=== PATIENT | male | born 1950 ===

== ENCOUNTER → 2024-05-13 11:45 | Outpatient (REF) | payer OTHER, SELFPAY | LOC: RAD 11:45 | PROVIDERS: ATTENDING PHYSICIAN Internal Medicine | DX: I25.119 Atherosclerotic heart disease of native coronary artery with unspecified angina pectoris (principal) | CPT/HCPCS: 71046 ==

== ENCOUNTER 2024-06-29 21:54 | Inpatient (IN) | payer OTHER, SELFPAY ==
[2024-06-29 17:14] VITALS: BMI 28.3
[2024-06-29 17:46] LABS: % Basophils 0.2 % (0-2); % Eosinophils 0.2 % (0-6); % Immature Granulocytes 0.4 % (0-0.5); % Lymphocytes 11.4 % (20.5-51.1); % Monocytes 4.9 % (1.7-9.3); % Neutrophils 82.9 % (42.2-75.2); Absolute Immature Granulocytes 0.1 10^3/uL (0-0.05); Absolute Lymphocytes 1.3 10^3/uL (1.2-3.4); Absolute Monocytes 0.6 10^3/uL (0.1-0.6); Absolute Neutrophils 9.6 10^3/uL (1.4-6.5); Hematocrit 40.3 % (39.0-52.0); Hemoglobin 13.2 g/dL (13.0-18.0); Mean Corp Hgb Conc. 32.8 g/dL (33.0-37.0); Mean Corpuscular Hgb 31.2 pg (27.0-31.0); Mean Corpuscular Volume 95.3 fL (80.0-94.0); Mean Platelet Volume 9.7 fL (7.4-10.4); Nucleated Red Blood Cells % 0 % (-); Platelet Count 166 10^3/uL (130-400); Red Blood Cell Count 4.23 10^6/uL (4.70-6.10); Red Cell Dist. Width 16.9 % (11.5-14.5); White Blood Cell Count 11.6 10^3/uL (4.8-10.8)
[2024-06-29 18:02] LABS: ALT (SGPT) 147 U/L (0-50); AST (SGOT) 234 U/L (17-59); Albumin 4.5 g/dl (3.5-5.0); Alkaline Phosphatase 179 U/L (38-126); Blood Urea Nitrogen 27 mg/dl (9-20); Calcium 9.7 mg/dl (8.4-10.2); Carbon Dioxide 24 mmol/L (22-30); Chloride 108 mmol/L (98-107); Estimated Creatinine Clearance 46 ml/min; Glucose 193 mg/dl (70-99); Potassium 4.9 mmol/L (3.5-5.1); Sodium 142 mmol/L (135-145); Total Bilirubin 3.1 mg/dl (0.2-1.3); Total Protein 7.1 g/dl (6.3-8.2); eGFR > 60.00
--- NOTE | 2024-06-29 18:05 | ED.GENMED ---
History of Present Illness
General
Chief Complaint: Abdominal Pain
Source: patient
Exam Limitations: none
Time Seen by Provider: 06/29/24 17:53
History of Present Illness
History of Present Illness:
See MDM
Past History
Past History
ED Past Medical History: Arrthythmia, CAD, IDDM and Other (Crohns)
Social History
Tobacco: Non-smoker
Alcohol: None
Phy Exam
Physical Exam
Physical Exam:
See MDM
Course
Orders/Labs/Results
Orders:
Orders
06/29/24 17:13
EKG [Electrocardiogram (*1)] Urgent
Reason for Study: Abdominal Pain
EKG- Treatment ONCE
06/29/24 17:36
Complete Blood Count/With Diff Urgent
Comprehensive Metabolic Panel Urgent
Lipase Urgent
Troponin I Urgent
06/29/24 18:05
0.9% Sodium Chloride 1000 ml [Nss] 1,000 ml IV BOLUS
Morphine Sulfate 4 mg IV NOW STA
Ondansetron Injectable [Zofran] 4 mg IV NOW STA
US Abdomen Complete/Upper Urgent
Comment:
Reason For Exam: RUQ pain
Abnormal Lab Results
06/29/24
17:36
WBC 11.6 H 10^3/uL
(4.8-10.8)
RBC 4.23 L 10^6/uL
(4.70-6.10)
MCV 95.3 H fL
(80.0-94.0)
MCH 31.2 H pg
(27.0-31.0)
MCHC 32.8 L g/dL
(33.0-37.0)
RDW 16.9 H %
(11.5-14.5)
Abs Immat Gran (auto) 0.1 H 10^3/uL
(0-0.05)
Absolute Neuts (auto) 9.6 H 10^3/uL
(1.4-6.5)
Neutrophils % 82.9 H %
(42.2-75.2)
Lymphocytes % 11.4 L %
(20.5-51.1)
Chloride 108 H mmol/L
(98-107)
BUN 27 H mg/dl
(9-20)
Glucose 193 H mg/dl
(70-99)
Total Bilirubin 3.1 H mg/dl
(0.2-1.3)
AST 234 H U/L
(17-59)
ALT 147 H U/L
(0-50)
Alkaline Phosphatase 179 H U/L
(38-126)
Lipase > 4000 H* U/L
(23-300)
06/29/24 17:36
06/29/24 17:36
Vital Signs
Initial and Last Documented VS:
Initial Vital Signs
Temp Pulse Resp Pulse Ox
98.2 F 70 18 99
06/29/24 17:14 06/29/24 17:14 06/29/24 17:14 06/29/24 17:14
Last Documented Vital Signs
Temp Pulse Resp Pulse Ox
98.2 F 70 16 99
06/29/24 17:14 06/29/24 17:14 06/29/24 18:00 06/29/24 17:14
MDM/Problems Addressed
Differential Diagnosis Includes:
HPI and MDM Narrative:
73-year-old male presenting with right upper quadrant pain for the past several hours. Patient states he was out with his when he noted the symptoms. There is no pain in soon after eating. Patient believes this could be his gallbladder. He
has been told several times in the past that he has sludge and multiple stones in his gallbladder. On exam, patient has point tenderness in the right upper quadrant and is uncomfortable. Will obtain LFTs and right upper quadrant ultrasound and
provide pain control
Physical exam
General: Mildly uncomfortable
HEENT: protecting airway
Neck: appears supple
CV: No evidence of cyanosis
Resp: No accessory muscle use
Abd: Non-distended. Point tenderness to right upper quadrant
Extremities: No deformities
Neuro: alert
Psych: Normal affect
Skin: Intact
Problems Addressed including Acute and Chronic Conditions affecting care:
1. Abdominal pain
Acuity: acute
Prognosis: stable
Details: Given location of pain and prior history of gallstones, will obtain ultrasound
Updates
Lipase elevated which raises concern for gallstone pancreatitis
On reassessment after morphine, all symptoms resolved. Ultrasound confirms gallstones with no obvious ductal dilation. Case discussed with general surgery who suggested admit for GI evaluation for MRCP versus ERCP
Differential Diagnosis (but not limited to): Symptomatic cholelithiasis, acute calculus cholecystitis
Testing considered: Abdominal CT
Drug therapy (if applicable): OTC meds, please see d/c instruction regarding Rx drugs
Amount and/or Complexity of Data Reviewed
Clinical info obtained from: Patient
External data reviewed: N/A
Labs I independently reviewed (but not limited to): Mild leukocytosis, elevated LFTs, elevated lipase
Radiology: Ultrasound report
Pulse Ox: not hypoxic
EKG independently reviewed: N/A
Cane Stripper: N/A
Critical Care: N/A
Risk of Complication:
Social Determinants of health: Good social support
Discussed with other providers: General Surgeon, Hospital
Escalation of Care includes Admit/Obs: Given concern for gallstone pancreatitis, will admit for further workup
Occasional wrong word or 'sound a like' substitutions may have occurred due to the inherent limitations of voice recognition software. Read the chart carefully and recognize, using context, where substitutions have occurred.
*Critical Care Note
Total Time (30-74mins, 75-104mins- exclusive of procedures): Not Applicable
ED Attending Note
-
Portions of this chart may have been created with voice recognition software.� Occasional wrong word or��sound alike� substitutions may have occurred due to the inherent limitations of voice recognition software.
Discharge Plan
Departure
Patient Disposition: Admit
Date of Disposition: 06/29/24
Time of Disposition: 20:48
Presentation/result/management discussed w/ accepting MD/DO: Hospitalist
Discharge Problem:
Gallstone pancreatitis
Prescriptions:
No Action
atorvastatin [Lipitor] 80 mg Tablet
80 mg PO QPM
carvedilol [Coreg] 25 mg Tablet
25 mg PO BID
Theragen Tablet
1 tab PO DAILY
ascorbic acid (vitamin C) [Vitamin C] 500 mg Tablet
500 mg PO BID
pantoprazole [Protonix] 40 mg Tablet,Delayed Release (Dr/Ec)
40 mg PO DAILY
eplerenone 25 mg Tablet
25 mg PO DAILY
Fish Oil Capsule
1,000 mg PO QPM
cholecalciferol (vitamin D3) [Vitamin D3] 25 mcg (1,000 unit) Tablet
50 mcg PO DAILY
insulin glargine 100 unit/mL (3 mL) Insulin Pen
28 unit SC HS
Eliquis 5 mg Tablet
5 mg PO BID
potassium chloride 20 mEq Tablet Extended Release
20 meq PO QPM
Jardiance 25 mg Tablet
12.5 mg PO DAILY
sacubitril-valsartan [Entresto] 97-103 mg Tablet
1 tab PO BID
Referrals:
Kezia Hagen DO [Family Provider] -
Interventions
Interventions:
*Risk Screen - Suicide Last Done: 06/29/24 17:14
*General Assessment Last Done: 06/29/24 17:14
*Neglect/Abuse Screening Last Done: 06/29/24 17:52
*ED COVID-19 Vaccine History Last Done: 06/29/24 17:14
NQ-Bukdqi-Ecedhbpakp Assessment Last Done: 06/29/24 17:52
Discharge Date and Time
Print Language: CHINESE
[2024-06-29 18:10] LABS: Troponin I < 0.012 ng/ml
[2024-06-29 18:27] LABS: Lipase > 4000 U/L (23-300)
[2024-06-29] MEDS: NSS 1000 IV (18:27)
[2024-06-29] MEDS: ZOFRAN 4 MG IV (18:27)
[2024-06-29] MEDS: MORPHINE SULFATE 4 MG IV (18:27)
[2024-06-29 21:08] VITALS: BP 153/68
--- NOTE | 2024-06-29 21:09 | EDRN ---
Hospitalist at bedside working on admission, call briggs in reach
--- NOTE | 2024-06-29 21:14 | HPS.HSE ---
Family Physician
-
Family Physician: Kezia Hagen,
Chief Complaint
-
Abdominal pain
History of Present Illness
This is 73-year-old with past medical history significant for insulin-dependent diabetes, coronary artery disease status post CABG and approximately 16 stents, ischemic cardiomyopathy, status post PPM AICD, atrial fibrillation currently on
anticoagulation, GERD who presents to the emergency department with episode of epigastric pain.
Patient reports he had a similar episode about 3 weeks ago. He took Gas-X and which resolution of pain. He reported that around 2 PM this afternoon he started having epigastric pain that appears to be radiating to the right upper quadrant. It is
associated with nausea but denies any vomiting. He denies any radiation to the chest shoulders arms or legs. He denies any associated dyspnea on exertion or shortness of breath. Patient denies any palpitations. He denies feeling dizzy or
lightheaded.
He initially tolerated the pain for a few hours after arriving home. He took some antacids without any improvement in pain. Pain became even more severe so he decided to come to the emergency department. He denies having any fevers or chills.
Patient reports recent urological issues requiring cystoscopy which was unremarkable. He had a CT recently which did showed a left kidney lesion of about 2 cm and is pending MRI of the abdomen. He is also pending an MRI of the cervical spine.
He denies any recent episodes of exertional angina with last episode of angina several months ago requiring nitroglycerin.
Here in the emergency department he was afebrile, normotensive, satting 99% on room air. Pulse was 70. ECG shows a a paced rhythm at 71. Troponin was negative. CBC was unremarkable with a white count of 11.6. Electrolytes BUN/creatinine were
all within the normal range. Glucose 193. He did have elevations in total bilirubin to 3.1, elevations of AST to 234 ALT to 1.7 and alk phos to 179. Lipase was elevated at 4000.
Ultrasound of the abdomen shows cholelithiasis with multiple stones, mild gallbladder thickening, no evidence of biliary ductal dilation.
Medical History
Past Medical History
Past Medical History: Reports Arrhythmia (History of atrial fibrillation status post PPM, no recent episodes on anticoagulation), CHF (Nonischemic cardiomyopathy, status post PPM AICD), GERD, HTN and Hypercholesterolemia
Past Surgical History: Reports Cardiac (CABG)
Social History
Tobacco: Non-smoker
Alcohol: Occasional
Drug: None
Personal:
Living: With Family
Employment: Retired
Family History
Family History: Not pertinent
Allergies / Home Medications
Allergies reflects when Allergies were last updated in [facility].
Home Medications with original date entered in [facility]
Allergy/Medication List:
Allergies
Allergy/AdvReac Type Severity Reaction Status Date / Time
No Known Allergies Allergy Unverified 06/29/24 18:20
Home Medications
apixaban 5 mg tablet (Eliquis) 5 mg PO BID 06/29/24
ascorbic acid (vitamin C) 500 mg tablet (Vitamin C) 500 mg PO BID 06/29/24
atorvastatin 80 mg tablet (Lipitor) 80 mg PO QPM 06/29/24
carvedilol 25 mg tablet (Coreg) 25 mg PO BID 06/29/24
cholecalciferol (vitamin D3) 25 mcg (1,000 unit) tablet (Vitamin D3) 50 mcg PO DAILY 06/29/24
empagliflozin 25 mg tablet (Jardiance) 12.5 mg PO DAILY 06/29/24
eplerenone 25 mg tablet 25 mg PO DAILY 06/29/24
insulin glargine 100 unit/mL (3 mL) subcutaneous pen 28 unit SC HS 06/29/24
omega-3 fatty acids 1,000 mg PO QPM 06/29/24
pantoprazole 40 mg tablet,delayed release (Protonix) 40 mg PO DAILY 06/29/24
potassium chloride 20 mEq tablet,extended release 20 meq PO QPM 06/29/24
sacubitril 97 mg-valsartan 103 mg tablet (Entresto) 1 tab PO BID 06/29/24
therapeutic multivitamin 1 tab PO DAILY 06/29/24
Review of Systems
-
History Source: Patient
Constitutional: Reports No Symptoms
EENT: Reports No Symptoms
Respiratory: Reports No Symptoms
Cardiac: Reports No Symptoms
Abdomen/GI: Reports Abdominal Pain and Nausea
: Reports No Symptoms
Musculoskeletal: Reports No Symptoms
Skin: Reports No Symptoms
Neurological: Reports No Symptoms
Endocrine: Reports No Symptoms
Hematologic/Lymphatic: Reports No Symptoms
Psych: Reports No Symptoms
Physical Exam
Vital Signs
Vital Signs
Temp Pulse Resp BP Pulse Ox
98.2 F 70 16 153/68 98
06/29/24 17:14 06/29/24 21:08 06/29/24 21:08 06/29/24 21:08 06/29/24 21:08
Physical Exam
General: Well Developed, Well Nourished, No Apparent Distress and Comfortable
HEENT: NormoCephalic, Anicteric, Moist mucous membranes and Atraumatic
Respiratory: Clear
Cardiac: S1/S2
Breast: Deferred by me
GI: Soft, Normal Bowel Sounds, Tender (Epigastric tenderness, right upper quadrant tenderness) and No Hepatosplenomegaly
Rectal: Deferred by Provider
Genito-urinary: Deferred by me
Musculoskeletal: No Clubbing, No Cyanosis and No Edema
Skin: Warm
Neuro: AO x 3 and Nonfocal/grossly intact
Psych: Calm
Laboratory Results
-
06/29/24 17:36
06/29/24 17:36
Laboratory Results
Total Bilirubin 3.1 mg/dl (0.2-1.3) H 06/29/24 17:36
AST 234 U/L (17-59) H 06/29/24 17:36
ALT 147 U/L (0-50) H 06/29/24 17:36
Alkaline Phosphatase 179 U/L (38-126) H 06/29/24 17:36
Troponin I < 0.012 ng/ml 06/29/24 17:36
Lipase > 4000 U/L (23-300) H* 06/29/24 17:36
Data Reviewed
-
Ultrasound: Report Reviewed by me
Medical Tests (Nuc Med, Echo, EKG etc): Image Personally Visualized and interpreted
Lab Data: Labs Reviewed by me
Old Records: Reviewed
Impression/Plan
-
IMPRESSION:
73-year-old male with coronary artery disease status post CABG and multiple stents, ischemic cardiomyopathy with recovered EF, atrial fibrillation on anticoagulation, status post pacemaker, presented emergency department with epigastric abdominal
pain and found to have pancreatitis as well as elevated transaminitis. Alk phos elevated and T. bili elevated consistent with a cholestatic pattern. Ultrasound showing several stones in the gallbladder with mild gallbladder wall thickening but no
sonographic Ray's signs. His exam is notable for epigastric tenderness but otherwise benign. Labs were unremarkable and patient is hemodynamically stable and nontoxic-appearing.
PLAN:
1. Gallstone pancreatitis
- admit to med/surg
- npo for now
- gentle hydration given CHF (not on diuretics), LR at 75 ml/hr
- pain control and antiemetics
- trend lfts for now
- mrcp (patient with medtronic [id number] device, mri condi), required deactivation and monitoring for prior mri
- may need ERCP, GI consult
2. DM II - On insulin glargine 28 units hs, jardiance
- hold glargine while npo
- insulin sliding scale q6 while npo
- continue jardiance
3. AFIB s/p PPM
- continue eliquis
- continue carvedilol 25 bid
4. CHF - asymptomatic, euvolemic
- continue entresto and eplenrenone
- coreg as above
- jardiance as above
5. CAD - asymptomatic
- eliquis, coreg statin
DVT PPX - on eliquis
Code status - Full Code
[2024-06-29] MEDS: COREG 25 MG PO (22:23)
[2024-06-29] MEDS: ENTRESTO 97 MG/103 MG 1 TAB PO (22:24)
[2024-06-29 23:05] VITALS: BP 155/68; BMI 29.7
[2024-06-29 23:10] LABS: Glucose - Point of Care 100 mg/dl (70-99)
[2024-06-29 23:31] VITALS: BMI 29.7
[2024-06-29] MEDS: LR 1000 IV (23:33)
[2024-06-29] MEDS: NOVOLOG FLEXPEN-LOW RESISTANCE SC (23:42)
[2024-06-30 05:57] LABS: Glucose - Point of Care 72 mg/dl (70-99)
[2024-06-30] MEDS: NOVOLOG FLEXPEN-LOW RESISTANCE SC ×3 (06:15→17:03)
[2024-06-30 07:00] VITALS: BP 120/60
[2024-06-30] MEDS: COREG 25 MG PO ×2 (08:06→20:13)
[2024-06-30] MEDS: FARXIGA 10 MG PO (08:06)
[2024-06-30] MEDS: PROTONIX 40 MG PO (08:06)
[2024-06-30] MEDS: THERAGRAN 1 TABLET PO (08:06)
[2024-06-30] MEDS: ZOSYN 50 IV ×3 (08:06→20:14)
[2024-06-30] MEDS: INSPRA 25 MG PO (08:07)
[2024-06-30] MEDS: ENTRESTO 97 MG/103 MG 1 TAB PO ×2 (08:07→20:13)
[2024-06-30 08:18] LABS: ALT (SGPT) 404 U/L (0-50); AST (SGOT) 375 U/L (17-59); Albumin 3.4 g/dl (3.5-5.0); Alkaline Phosphatase 197 U/L (38-126); Blood Urea Nitrogen 18 mg/dl (9-20); Calcium 8.5 mg/dl (8.4-10.2); Carbon Dioxide 18 mmol/L (22-30); Chloride 110 mmol/L (98-107); Direct Bilirubin 1.3 mg/dl (0.0-0.4); Estimated Creatinine Clearance 67 ml/min; Glucose 78 mg/dl (70-99); Magnesium 1.9 mg/dl (1.6-2.3); Potassium 3.6 mmol/L (3.5-5.1); Sodium 138 mmol/L (135-145); Total Bilirubin 2.9 mg/dl (0.2-1.3); Total Protein 5.7 g/dl (6.3-8.2); eGFR > 60.00
[2024-06-30 08:59] LABS: Hematocrit 36.5 % (39.0-52.0); Hemoglobin 11.9 g/dL (13.0-18.0); Mean Corp Hgb Conc. 32.6 g/dL (33.0-37.0); Mean Corpuscular Hgb 30.7 pg (27.0-31.0); Mean Corpuscular Volume 94.3 fL (80.0-94.0); Mean Platelet Volume 10.1 fL (7.4-10.4); Platelet Count 126 10^3/uL (130-400); Red Blood Cell Count 3.87 10^6/uL (4.70-6.10); Red Cell Dist. Width 16.6 % (11.5-14.5); White Blood Cell Count 6.8 10^3/uL (4.8-10.8)
--- NOTE | 2024-06-30 09:54 | CON.GS ---
Addendum entered and electronically signed by Boris Kauffman MD 06/30/24 11:26:
I saw and examined the patient independently.
The Services Mgr's note was reviewed and I agree with the note, assessment and plan except where noted below.
Comment: This is a 73-year-old male with a history of CAD, status post CABG 2014, A-fib on Eliquis, AICD, IDDM, Crohn's disease status post generous exploratory laparotomy with both small and large bowel resection, open right inguinal hernia repair,
who presents with a 1 day history of severe epigastric pain found to have pancreatitis. Ultrasound demonstrates cholelithiasis concerning for likely biliary source.
MRCP today
Would likely consider cholecystectomy this admission.
No role for antibiotics at this time, continue IV fluids.
Okay to start full liquids after his MRI pending findings. N.p.o. at midnight
He will need another 24 hours for his Eliquis to washout and his pancreatitis to improve though clinically he is better today,
Patient tentatively added on for the OR tomorrow. Given his prior open midline incision, he understands that he is high risk for converting to open for his cholecystectomy.
All questions answered, patient agreeable to plan of care above.
I spent 75 minutes in total for the care of this patient today including direct patient care and counseling, reviewing labs, imaging, coordination of care, as well as documentation.
Original Note:
Medical History
-
Chief Complaint: abdominal pain
History of Present Illness:
Mr. Newton is a 73 yo male with a h/o CAD with CABG in 2014, Afib on Eliquis (LD 3// at 0900), AICD, IDDM, Crohn's with ex lap with resection of portions of the small and large bowel in 1983, open right inguinal hernia repair in 2023 and known
cholelithiasis who presents with epigastric pain which began around 2pm yesterday which persisted and radiated like a band across his upper abdomen, left greater than right. He tried antacids without relief and presented through the ED for
evaluation yesterday. This morning, he notes that his pain has nearly resolved although is still present, mostly on the left side. On exam there is mild tenderness to the epigastric area. He denies nausea or vomiting, fever or chills.
Past Medical History
Past Medical History: Arrhythmias (afib on Eliquis ), CAD, GERD, HTN, Hypercholesterolemia, IDDM and Other (Crohn's dz)
Past Surgical History: Appendectomy (at time of ex lap in 1983), Bowel Resection (ex lap with resection of portions of the small and large bowel), Cardiac (CABG 2014, AICD, 16 stents) and Hernia Repair (open right inguinal at [facility] 02/2024)
Social History
Tobacco: Non-Smoker
Alcohol: Occasional
Drug: None
Family History
Family History: Reviewed & Not Pertinent
Allergies / Home Medications
Allergy/AdvReac Type Severity Reaction Status Date / Time
No Known Allergies Allergy Unverified 06/29/24 18:20
�Medication �Instructions �Recorded �Confirmed �Type
apixaban 5 mg tablet (Eliquis) 5 mg PO BID Blood Clot 06/29/24 06/29/24 History
Prevention/Tx
ascorbic acid (vitamin C) 500 mg 500 mg PO BID Supplement 06/29/24 06/29/24 History
tablet (Vitamin C)
atorvastatin 80 mg tablet (Lipitor) 80 mg PO QPM High Cholesterol 06/29/24 06/29/24 History
carvedilol 25 mg tablet (Coreg) 25 mg PO BID Heart Failure 06/29/24 06/29/24 History
cholecalciferol (vitamin D3) 25 50 mcg PO DAILY Supplement 06/29/24 06/29/24 History
mcg (1,000 unit) tablet (Vitamin
D3)
empagliflozin 25 mg tablet 12.5 mg PO DAILY Heart Failure 06/29/24 06/29/24 History
(Jardiance)
eplerenone 25 mg tablet 25 mg PO DAILY Fluid 06/29/24 06/29/24 History
Retention/Swelling
insulin glargine 100 unit/mL (3 28 unit SC HS Diabetes 06/29/24 06/29/24 History
mL) subcutaneous pen
omega-3 fatty acids 1,000 mg PO QPM Supplement 06/29/24 06/29/24 History
pantoprazole 40 mg tablet,delayed 40 mg PO DAILY Gastrointestinal 06/29/24 06/29/24 History
release (Protonix) Issue
potassium chloride 20 mEq 20 meq PO QPM Electrolyte Repletion 06/29/24 06/29/24 History
tablet,extended release
sacubitril 97 mg-valsartan 103 mg 1 tab PO BID Heart Failure 06/29/24 06/29/24 History
tablet (Entresto)
therapeutic multivitamin 1 tab PO DAILY Supplement 06/29/24 06/29/24 History
Review of Systems
-
History Source: Patient
All other systems: Negative unless noted
A 10 point review of systems was completed, and was negative except as per HPI.
Physical Exam
Vital Signs
Temp Pulse Resp BP Pulse Ox
98.1 F 71 18 120/60 95
06/30/24 07:00 06/30/24 07:00 06/30/24 07:00 06/30/24 08:06 06/30/24 07:00
06/29/24 06/30/24 07/01/24
06:59 06:59 06:59
Actual Weight 75.977 kg
Body Mass Index (BMI) 29.7
Lab Results
06/30/24 06:21
06/30/24 06:21
WBC 6.8 10^3/uL (4.8-10.8) 06/30/24 06:21
Hgb 11.9 g/dL (13.0-18.0) L 06/30/24 06:21
Hct 36.5 % (39.0-52.0) L 06/30/24 06:21
Plt Count 126 10^3/uL (130-400) L D 06/30/24 06:21
Abs Immat Gran (auto) 0.1 10^3/uL (0-0.05) H 06/29/24 17:36
Neutrophils % 82.9 % (42.2-75.2) H 06/29/24 17:36
Physical Exam
General: Well Developed and Well Nourished
HEENT: Moist Mucous Membranes
Respiratory: Non Labored Respirations
GI: Soft, Non Distended and Tender (epigastric)
Skin: Warm and Dry
Neuro: Awake, Alert and AO x 3
Psych: Calm
Assessment / Plan
-
Mr. Newton is a 73 yo male with a h/o CAD with CABG in 2014, Afib on Eliquis (LD at 0900), AICD, IDDM, Crohn's with ex lap with resection of portions of the small and large bowel in 1983, open right inguinal hernia repair in 2023 and known
cholelithiasis who presents with upper abdominal pain which began yesterday afternoon. He notes pain is improving today but some residual discomfort persists. On presentation, lipase >4K with bilirubin elevated to 3.1. Mildly elevated WBC count of
11.6 was present which normalized this morning. US imaging was notable for cholelithiasis and some mild gallbladder wall thickening. He has been afebrile with stable vital signs.
Suspect gallstone pancreatitis
--MRCP pending to further evaluate
--GI consult pending
--Hold Eliquis (LD was at 0900)
--Would recommend laparoscopic cholecystectomy after Eliquis washout, timing TBD pending GI work up
--Analgesics/Antiemetics
--Medical management as per primary team
--VTE ppx as per primary
--- NOTE | 2024-06-30 10:15 | CON.GI ---
Addendum entered and electronically signed by Parveen Agudelo MD 07/01/24 14:13:
clarification * If MRI shows choledocholithiasis will schedule ERCP.
pain management as per medical team
Addendum entered and electronically signed by Parveen Agudelo MD 06/30/24 18:57:
I saw and examined the patient.
The medical equipment repair technician note was reviewed and I agree with the note.
Assessment
--Abdominal pain/nausea/elevated lipase/elevated liver test - gallstone pancreatitis. Ultrasound-cholelithiasis with gallbladder wall thickening. No bile duct dilatation. TG normal
--Elevated liver test transaminitis
--CAD with multiple stents/post pacemaker
--Atrial fibrillation on Eliquis. last dose 032 am
--GERD
--History of Crohn's disease-in remission. bowel resection sx in the past . not on any rx. last colonoscopy 2023- colon polyp +
plan
Will get MRI/MRCP to rule out CBD stone
Surgical consultation reviewed
Continue to trend LFT
Management as per medical team
MRI showing choledocholithiasis will schedule for ERCP
Original Note:
Consultation
-
Date/Time Consultation Requested: 06/29/24 07:36
Date/Time Consultation Performed: 06/30/2024 08:30
Requesting Provider: Rico Boland MD
Performing Provider: Emiliana Mathew MD
Reason for Consultation: Gallstone with pancreatitis
Medical History
Chief Complaint / HPI
Chief Complaint: Abdominal pain
History of Present Illness:
The patient is a 73-year-old male with a past medical history of significant coronary artery disease s/p CABG with 16 stents, ischemic cardiomyopathy, status post PPM AICD, atrial fibrillation (on Eliquis 5 mg BID), hypercholesterolemia, IDDM and
GERD who presented to ER 06/29/24 with a severe epigastric pain with nausea. The patient reported having a similar episode of pain about 3 weeks ago and it revealed after taking Gas-X. The patient rated his pain 10/10 on the upper epigastric area
at the admission and today reports feeling much better after given pain medicine, only feels some abdominal discomfort due feeling bloated. Patient reported feeling some nauseous with the pain but he denied vomiting, heartburn, hematemesis,
dysphagia, odynophagia, melena, constipation, diarrhea, fever, chills, chest pain and shortness of breath. He denies hepatobiliary or pancreatic diseases in the past, but endorses having Crohn's disease( in remission for years).
Past Medical History
Past Medical History: Arrhythmias (Atrial fibrillation( on Eliquis 5 mg BID)), CAD, GERD, Hypercholesterolemia, NIDDM and Other ( Crohn's disease)
Past Surgical History: Appendectomy (at time of ex lap in 1983), Bowel Resection (ex lap with resection of portions of the small and large bowel due Chron`s disease ), Cardiac (CABG 2014, AICD, 16 stents) and Other (open right inguinal at [facility] 02/2024)
Social History
Tobacco: Former Smoker (Quit in 2001-smoked about 10 years)
Alcohol: Occasional
Drug: None
Personal:
Living: With Family
Employment: Retired
Family History
Family History: Reviewed & Not Pertinent
Allergies / Home Medications
Allergy/AdvReac Type Severity Reaction Status Date / Time
No Known Allergies Allergy Unverified 06/29/24 18:20
�Medication �Instructions �Recorded
apixaban 5 mg tablet (Eliquis) 5 mg PO BID Blood Clot 06/29/24
Prevention/Tx
ascorbic acid (vitamin C) 500 mg 500 mg PO BID Supplement 06/29/24
tablet (Vitamin C)
atorvastatin 80 mg tablet (Lipitor) 80 mg PO QPM High Cholesterol 06/29/24
carvedilol 25 mg tablet (Coreg) 25 mg PO BID Heart Failure 06/29/24
cholecalciferol (vitamin D3) 25 50 mcg PO DAILY Supplement 06/29/24
mcg (1,000 unit) tablet (Vitamin
D3)
empagliflozin 25 mg tablet 12.5 mg PO DAILY Heart Failure 06/29/24
(Jardiance)
eplerenone 25 mg tablet 25 mg PO DAILY Fluid 06/29/24
Retention/Swelling
insulin glargine 100 unit/mL (3 28 unit SC HS Diabetes 06/29/24
mL) subcutaneous pen
omega-3 fatty acids 1,000 mg PO QPM Supplement 06/29/24
pantoprazole 40 mg tablet,delayed 40 mg PO DAILY Gastrointestinal 06/29/24
release (Protonix) Issue
potassium chloride 20 mEq 20 meq PO QPM Electrolyte Repletion 06/29/24
tablet,extended release
sacubitril 97 mg-valsartan 103 mg 1 tab PO BID Heart Failure 06/29/24
tablet (Entresto)
therapeutic multivitamin 1 tab PO DAILY Supplement 06/29/24
Review of Systems
-
History Source: Patient
Constitutional: Reports No Symptoms
EENT: Reports No Symptoms
Respiratory: Reports No Symptoms
Cardiac: Reports No Symptoms
Abdomen/GI: Reports Other (Denies any pain this morning, reports some abdominal discomfort due to feeling bloated)
: Reports No Symptoms
Musculoskeletal: Reports No Symptoms
Skin: Reports No Symptoms
Neurological: Reports No Symptoms
Vital Signs
Temp Pulse Resp BP Pulse Ox
98.1 F 71 18 120/60 95
06/30/24 07:00 06/30/24 07:00 06/30/24 07:00 06/30/24 08:06 06/30/24 07:00
Physical Exam
Exam
General: Well Developed, Well Nourished, No Apparent Distress and Comfortable
HEENT: Normocephalic and Anicteric
Respiratory: Clear
Cardiac: S1/S2 and Irregular Rhythm
GI: Soft, Non Tender and Distended (Slightly)
Musculoskeletal: No Clubbing, No Cyanosis and No Edema
Skin: Warm
Neuro: Awake, Alert, Oriented and Nonfocal/Grossly Intact
Psych: Calm
Results
WBC 6.8 10^3/uL (4.8-10.8) 06/30/24 06:21
Hgb 11.9 g/dL (13.0-18.0) L 06/30/24 06:21
Hct 36.5 % (39.0-52.0) L 06/30/24 06:21
MCV 94.3 fL (80.0-94.0) H 06/30/24 06:21
Plt Count 126 10^3/uL (130-400) L D 06/30/24 06:21
Absolute Neuts (auto) 9.6 10^3/uL (1.4-6.5) H 06/29/24 17:36
Sodium 138 mmol/L (135-145) 06/30/24 06:21
Potassium 3.6 mmol/L (3.5-5.1) D 06/30/24 06:21
Chloride 110 mmol/L (98-107) H 06/30/24 06:21
Carbon Dioxide 18 mmol/L (22-30) L 06/30/24 06:21
BUN 18 mg/dl (9-20) 06/30/24 06:21
Creatinine 0.9 mg/dL (0.7-1.3) 06/30/24 06:21
Calcium 8.5 mg/dl (8.4-10.2) 06/30/24 06:21
Total Bilirubin 2.9 mg/dl (0.2-1.3) H 06/30/24 06:21
AST 375 U/L (17-59) H 06/30/24 06:21
ALT 404 U/L (0-50) H 06/30/24 06:21
Alkaline Phosphatase 197 U/L (38-126) H 06/30/24 06:21
Lipase > 4000 U/L (23-300) H* 06/29/24 17:36
Diagnostic Image Results:
ABD US 06/29/2024
FINDINGS: The liver is mildly enlarged at 18.7 cm with smooth capsular contour and homogeneous echogenicity. There is no focal hepatic lesion or intrahepatic biliary dilation. The gallbladder contains small cysts gallstones with mildly thickened
wall at 0.41 cm. No sonographic Ray's sign was elicited with examination. The common duct is top normal, measuring 0.6 cm. The pancreas and IVC are significantly obscured, most likely by overlying bowel gas. The spleen is widely enlarged at 14.8
cm, homogeneous in appearance. No renal collecting system dilatation or findings to suggest renal calculus are seen bilaterally. Simple appearing interpolar right renal cyst measures 2.7 x 2.2 x 3.0 cm and simple appearing upper pole left renal cyst
measures 2.3 x 1.9 x 1.3 cm. The right kidney measured 10.9 cm in greatest length; the left kidney measured 10.6 cm in greatest length. No free fluid is seen in the abdomen. No evidence of abdominal aortic aneurysm.
IMPRESSION: Mild hepatosplenomegaly.
Cholelithiasis with mild gallbladder wall thickening. Negative sonographic Ray's sign. No findings to suggest biliary tract dilatation. If there is a clinical concern for acute cholecystitis, consider Nuclear Hepatobiliary Scan.
The pancreas and IVC are significantly obscured, most likely by overlying bowel gas.
Small bilateral simple renal cysts.
Prior GI Procedures:
EGD: No known EGD
Colonoscopy:
Assessment / Plan
-
Assessment
Mr. Netwon is a 73-year-old gentleman who presented to ER after having a severe episode of epigastric pain. He has an extensive past medical history of coronary artery disease with stents, A-fib, hypertension, hypercholesterolemia, GERD and
history of Crohn`s disease. At admission, his CBC was significant with a WBC count of 11.6 and his electrolytes, BUN/Cr were within the normal range. His LFTs was found elevated AST to 234 (increased to 375 this a.m.), ALT 147 (increased to 404
this a.m.), ALP 179(increased to 197 this a.m.), total bilirubin to 3.1(decreased to 2.9 this a.m.), Lipase over the 4000. Abdominal ultrasound showed cholelithiasis with multiple stones, mild gallbladder thickening, no evidence of biliary ductal
dilation. The patient was admitted to the hospital and planned to have an MRI/MRCP today. On today's exam, patient reports improving pain after given pain medicine and only reports mild discomfort on epigastric area to feeling bloated.
Impression
Gallstone pancreatitis
Transaminitis
CAD with multiple stents
Atrial fibrillation
GERD
History of Crohn's disease
Plan
#Pancreatitis highly possibly due to gallstones vs drug-induced versus triglyceridemia
-Abdominal US notable for cholelithiasis with multiple stones/mild gallbladder thickening/no evidence of biliary ductal dilatation
-Possible already having passed the stone and possible still remaining stones
-MRI/MRCP pending
-AST increased to 375, ALT increased to 404, ALP increased to 197 this a.m.
-Lipase levels significantly decreased to 609, TB decreased to 2.9
-Continue to hold Eliquis
-NPO for now
-Pain management
-Antiemetics as needed
-Surgery team on board-likely planning a cholecystectomy following MRI/MRCP results/after Eliquis washout period
-ERCP can be considered based on MRI/MRCP result
-Triglyceride was ordered
-
-
Thank you for consultation and allowing me to participate in the patient's care. Please call the field identification specialist GI physician during the after hours with any questions or concerns.
--- NOTE | 2024-06-30 10:36 | W.PN.HOSP.TC ---
Today's Communication/Plan
-
See PN
Assessment / Plan
Assessment / Plan
73yo M with PMHx of HLD, Afib on Eliquis, AICD, PPM, DM, Crohns came with RUQ abdomina pain, found possible acute cholecystitis and gallstone pancreatitis
A/P:#
#Acute calculous cholecysittis
#Acute gall stone pancreatitis
#Transaminitits and elevated alk.phos 2/2 above
IVF
Zosyn
MRCP
GI and GenSx consult
Slowly advance diet as tolerated
pain mgmt
IVF
follow LFT
#Afib, unspecified s/p PPM
Hold eliuais for possible surgical intervention, restart when OK with GenSx
Telemetry
Rate control
#DMtype 2 with neuropathy
Accuchecks
hold Lantus while NPO
Insulin SS
dextrose as needed if hypoglycemia
#HLD
#Crohns
#CAD s/p CABG
#Essential HTN
#HFrEF
watch for fluid overload
cont home meds
DVT ppx hep
Full code
I have spent at least 59min reviewing chart, test results, communication with consultants and direct patient care
Anticipated Discharge: > 48 hours
Subjective/Interval History
-
Date of Service: June 30, 2024
Objective Data
-
Labs:
Laboratory Results
06/30/24
06:21
WBC 6.8
Hgb 11.9 L
Hct 36.5 L
Plt Count 126 L D
Sodium 138
Potassium 3.6 D
Chloride 110 H
Carbon Dioxide 18 L
BUN 18
Creatinine 0.9
Glucose 78
Calcium 8.5
Total Bilirubin 2.9 H
AST 375 H
ALT 404 H
Alkaline Phosphatase 197 H
Vital Signs:
Vital Signs
Temp Pulse Resp BP Pulse Ox
98.1 F 71 18 120/60 95
06/30/24 07:00 06/30/24 07:00 06/30/24 07:00 06/30/24 08:06 06/30/24 07:00
I&O
06/29/24 06/30/24 07/01/24
06:59 06:59 06:59
Intake Total 120 / 120
Balance 120 / 120
Review of Systems
-
History Source: Patient
All other systems: Reviewed and negative
Physical Exam
-
General: No Apparent Distress
HEENT: Normocephalic
Respiratory: Clear to Auscultation
GI: Soft, Nontender and Nondistended
Musculoskeletal: No Clubbing, No Cyanosis and No Edema
Neuro: Awake, Alert, Oriented and AO x 3
Psych: Calm
[2024-06-30 10:43] LABS: Lipase 609 U/L (23-300)
[2024-06-30] MEDS: D5/0.9% SODIUM CHLORIDE 1000 IV ×2 (11:29→23:04)
[2024-06-30 12:07] LABS: Glucose - Point of Care 89 mg/dl (70-99)
[2024-06-30 12:19] LABS: Triglycerides 135 mg/dl (10-149)
[2024-06-30] MEDS: ATIVAN 0.5 MG IV (14:37)
[2024-06-30] MEDS: NSS (PRESERVATIVE FREE) 0.25 ML IV (14:39)
[2024-06-30 15:00] VITALS: BP 132/65
--- NOTE | 2024-06-30 16:20 | CM ---
CM spoke with pt on the phone
Pt resides with his SO in a 3rd floor condo with elevator access
Pt is indep with his ADLs, no DMEs, drives+
Has crutches, a cane and WW for use if needed
No financial insecurities
SO/Patsy Quintero is POA
PCP- Kezia Hagen
Rx- [facility]
Discharge Disposition- anticipate home no needs
[2024-06-30] MEDS: HEPARIN 5000 UNITS SC ×2 (17:02→23:04)
[2024-06-30] MEDS: LIPITOR 80 MG PO (17:03)
[2024-06-30 18:06] LABS: Glucose - Point of Care 104 mg/dl (70-99)
[2024-06-30] MEDS: TYLENOL 650 MG PO (20:13)
[2024-06-30 23:17] VITALS: BP 108/52
[2024-07-01 00:14] LABS: Glucose - Point of Care 144 mg/dl (70-99)
[2024-07-01] MEDS: NOVOLOG FLEXPEN-LOW RESISTANCE SC ×3 (00:43→12:12)
[2024-07-01] MEDS: ZOSYN 50 IV ×4 (02:16→20:43)
[2024-07-01 06:00] VITALS: BMI 29.3
[2024-07-01 06:15] LABS: Glucose - Point of Care 131 mg/dl (70-99)
[2024-07-01 07:00] VITALS: BP 137/63
[2024-07-01] MEDS: INSPRA 25 MG PO (07:40)
[2024-07-01] MEDS: HEPARIN 5000 UNITS SC ×2 (07:40→15:52)
[2024-07-01] MEDS: COREG 25 MG PO ×2 (07:40→20:43)
[2024-07-01] MEDS: ENTRESTO 97 MG/103 MG 1 TAB PO ×2 (07:41→20:43)
[2024-07-01] MEDS: PROTONIX 40 MG PO (07:41)
[2024-07-01] MEDS: D5/0.9% SODIUM CHLORIDE 1000 IV (07:41)
[2024-07-01] MEDS: THERAGRAN 1 TABLET PO (07:42)
[2024-07-01 08:05] LABS: % Basophils 0.3 % (0-2); % Eosinophils 1.4 % (0-6); % Immature Granulocytes 0.6 % (0-0.5); % Lymphocytes 22.9 % (20.5-51.1); % Monocytes 12.3 % (1.7-9.3); % Neutrophils 62.5 % (42.2-75.2); Absolute Eosinophils 0.1 10^3/uL (0-0.7); Absolute Lymphocytes 0.8 10^3/uL (1.2-3.4); Absolute Monocytes 0.4 10^3/uL (0.1-0.6); Absolute Neutrophils 2.2 10^3/uL (1.4-6.5); Hematocrit 38.9 % (39.0-52.0); Hemoglobin 12.2 g/dL (13.0-18.0); Mean Corp Hgb Conc. 31.4 g/dL (33.0-37.0); Mean Corpuscular Hgb 30.2 pg (27.0-31.0); Mean Corpuscular Volume 96.3 fL (80.0-94.0); Mean Platelet Volume 10.1 fL (7.4-10.4); Nucleated Red Blood Cells % 0 % (-); Platelet Count 145 10^3/uL (130-400); Red Blood Cell Count 4.04 10^6/uL (4.70-6.10); Red Cell Dist. Width 16.8 % (11.5-14.5); White Blood Cell Count 3.6 10^3/uL (4.8-10.8)
--- NOTE | 2024-07-01 08:31 | W.PN.GS2 ---
Addendum entered and electronically signed by Omer Jaramillo MD 07/01/24 17:39:
MRI with choledocholithiasis throughout the CBD. GI updated. Timing of cholecystectomy pending.
Original Note:
Today's Communication / Plan
-
-- MRCP
-- Laparoscopic cholecystectomy with possible IOC, timing pending above
-- Abx: Zosyn
-- NPO
Assessment / Plan
-
Patient is a 73 yo M p/w pancreatitis likely gallstone in origin
AVSS
Repeat labs pending
GI consult noted, plan for MRCP
Symptomatically improved. Natural history and pathophysiology of biliary stone disease was reviewed. Cholecystectomy improvement future episodes of cholecystitis or pancreatitis was discussed. Timing of cholecystectomy TBD based on above workup.
We discussed a laparoscopic cholecystectomy with possible cholangiogram. The procedure itself, as well as the risks,, and alternatives was discussed. Specifically, we discussed the risks of bleeding, infection, injury to surrounding structures
(bowel (bowel, bile ducts), CBD injury, need for open procedure. All questions answered.
-- MRCP
-- Laparoscopic cholecystectomy with possible IOC, timing pending above
-- Abx: Zosyn
-- NPO
Subjective Data
-
Date of Service: July 01, 2024
Feels improved. Less pain. No nausea or vomiting. 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 Stools ironically are more yellow in appearance. No fevers or chills. He does report a similar episode of pain and discomfort approximately 3 weeks ago which lasted minutes
before self resolving. He denies any prior attacks of cholecystitis, biliary colic, or pancreatitis.
Objective Data
-
Intake and Output
06/30/24 07/01/24 07/02/24
06:59 06:59 06:59
Intake Total 120 / 120 1420 / 1420
Balance 120 / 120 1420 / 1420
Intake:
Oral fluids 120 / 120 120 / 120
IV fluids (Total) 1200 / 1200
IV piggybacks 100 / 100
Other:
Number of approximated MODERATE 3 3
amounts of urine
Vital Signs
Temp Pulse Resp BP Pulse Ox
97.3 F 71 18 137/63 96
07/01/24 07:00 07/01/24 07:00 07/01/24 07:00 07/01/24 07:00 07/01/24 07:00
Lab Results
07/01/24 06:37
Calcium 8.5 mg/dl (8.4-10.2) 06/30/24 06:21
Magnesium 1.9 mg/dl (1.6-2.3) 06/30/24 06:21
Total Bilirubin 2.9 mg/dl (0.2-1.3) H 06/30/24 06:21
Direct Bilirubin 1.3 mg/dl (0.0-0.4) H 06/30/24 06:21
AST 375 U/L (17-59) H 06/30/24 06:21
ALT 404 U/L (0-50) H 06/30/24 06:21
Alkaline Phosphatase 197 U/L (38-126) H 06/30/24 06:21
Total Protein 5.7 g/dl (6.3-8.2) L 06/30/24 06:21
Albumin 3.4 g/dl (3.5-5.0) L 06/30/24 06:21
Physical Exam
-
Gen: NAD
Abd: soft, minimal tenderness in epigastrium, ND, non-peritoneal, prior midline well healed, no palpable hernia
Patient has a donaldson catheter: No
Patient has a central line: No
[2024-07-01 08:34] LABS: ALT (SGPT) 325 U/L (0-50); AST (SGOT) 185 U/L (17-59); Albumin 3.3 g/dl (3.5-5.0); Alkaline Phosphatase 224 U/L (38-126); Blood Urea Nitrogen 9 mg/dl (9-20); Calcium 8.3 mg/dl (8.4-10.2); Carbon Dioxide 26 mmol/L (22-30); Chloride 110 mmol/L (98-107); Estimated Creatinine Clearance 54 ml/min; Glucose 138 mg/dl (70-99); Lipase 124 U/L (23-300); Potassium 3.2 mmol/L (3.5-5.1); Sodium 142 mmol/L (135-145); Total Bilirubin 2.2 mg/dl (0.2-1.3); Total Protein 5.6 g/dl (6.3-8.2); eGFR > 60.00
[2024-07-01] MEDS: KCL 270 MEQ IV (09:38)
[2024-07-01] MEDS: NSS (PRESERVATIVE FREE) 0.5 ML IV (10:17)
[2024-07-01] MEDS: ATIVAN 1 MG IV (10:17)
--- NOTE | 2024-07-01 10:37 | PTCARENOTE ---
made aware that pt went down to MRI with Potassium drip. said that it was fine to cap the potassium drip while the pt is in MRI.
--- NOTE | 2024-07-01 11:11 | W.PN.GI.CBS2 ---
Addendum entered and electronically signed by Ramiro Thompson MD 07/01/24 17:02:
I saw and examined the patient.
The HOT MILL WORKER or PA's note was reviewed and I agree with the note.
Comment: Denies abdominal pain. Upset at delay in ERCP/surgery
ABD soft NTND
MRCP shows multiple mid/distal CBD stones
REC:
Plan ERCP tomorrow with Dr Davis
Hold Eliquis
Cont abx
LFTs trending down. Lipase normalized c/w resolving GS pancreatitis
Original Note:
Today's Communication / Plan
-
-MRI/MRCP pending
-Eliquis last dose 06/29/24 a.m.
-Surgery on board awaiting MRCP results
-ERCP can be considered based on MRCP results
Assessment / Plan
-
Assessment
Mr. Newton is a 73-year-old gentleman who presented to ER after having a severe episode of epigastric pain. He has an extensive past medical history of coronary artery disease with stents, A-fib, hypertension, hypercholesterolemia, GERD and
history of Crohn`s disease. At admission, his CBC was significant with a WBC count of 11.6 and his electrolytes, BUN/Cr were within the normal range. His LFTs was found elevated AST to 234 (increased to 375 this a.m.), ALT 147 (increased to 404
this a.m.), ALP 179(increased to 197 this a.m.), total bilirubin to 3.1(decreased to 2.9 this a.m.), Lipase over the 4000. Abdominal ultrasound showed cholelithiasis with multiple stones, mild gallbladder thickening, no evidence of biliary ductal
dilation. The patient was admitted to the hospital and planned to have an MRI/MRCP today. The patient patient reports improving pain after given pain medicine since admission and only reports slight discomfort on epigastric area to feeling some
bloated. His MRI/MRCP was rescheduled for today.
Impression
Gallstone pancreatitis
Transaminitis
CAD with multiple stents
Atrial fibrillation
GERD
History of Crohn's disease
Plan
#Pancreatitis highly possibly due to gallstones vs drug-induced versus triglyceridemia
-Abdominal US notable for cholelithiasis with multiple stones/mild gallbladder thickening/no evidence of biliary ductal dilatation
-Possible already having passed the stone and possible still remaining stones
-MRI/MRCP still pending
-AST decreased to 185, ALT decreased to 325, ALP still elevated at 224 this a.m.
-Lipase levels significantly decreased to 124, TB decreased to 2.2
-Continue to hold Eliquis
-NPO for now
-Pain management
-Antiemetics as needed
-Surgery team on board-likely planning a cholecystectomy following MRI/MRCP results/after Eliquis washout period
-ERCP can be considered based on MRI/MRCP result
-Triglyceride level wiley
-Continue to trend LFT l
Subjective
Subjective
Date of Service: July 01, 2024
Patient was seen in his bed, denies any abdominal pain but reports some discomfort still on the right upper quadrant area. His MRI/MRCP was rescheduled for today.
Objective
Data Reviewed
Laboratory Data:
Laboratory Results
07/01/24 06:37
07/01/24 06:37
Laboratory Results
Magnesium 1.9 mg/dl (1.6-2.3) 06/30/24 06:21
Total Bilirubin 2.2 mg/dl (0.2-1.3) H 07/01/24 06:37
AST 185 U/L (17-59) H 07/01/24 06:37
ALT 325 U/L (0-50) H 07/01/24 06:37
Alkaline Phosphatase 224 U/L (38-126) H 07/01/24 06:37
Lipase 124 U/L (23-300) 07/01/24 06:37
Vital Signs and I&O:
Vital Signs
Temp Pulse Resp BP Pulse Ox
97.3 F 71 18 137/63 96
07/01/24 07:00 07/01/24 07:00 07/01/24 07:00 07/01/24 07:00 07/01/24 07:00
I&O
06/30/24 07/01/24 07/02/24
06:59 06:59 06:59
Intake Total 120 / 120 1420 / 1420
Balance 120 / 120 1420 / 1420
Physical Exam
Physical Exam
HEENT: Anicteric
Cardiology: S1, S2 and Irregular Rate/Rhythm
Pulmonary: Clear
GI: Soft, Non Distended, Non Tender and Other (Feeling slightly discomfort on the right upper abdominal quadrant)
Extremities: No Edema
Neuro: Non Focal
[2024-07-01 12:05] LABS: Glucose - Point of Care 112 mg/dl (70-99)
--- NOTE | 2024-07-01 12:20 | W.PN.HOSP.TC ---
Addendum entered and electronically signed by Artur Jurado MD 07/01/24 13:47:
#Indeterminate 2.4 cm intermediate signal intensity lesion in the posterior left renal cortex
Outpatient renal mass MRI w/wo contrast
Original Note:
Today's Communication/Plan
-
MRCP
IF needed - ERCP
Surgical cholecystectomy
meanwhile cont Abx
Assessment / Plan
Assessment / Plan
73yo M with PMHx of HLD, Afib on Eliquis, AICD, PPM, DM, Crohns came with RUQ abdomina pain, found possible acute cholecystitis and gallstone pancreatitis
A/P:#
#Acute calculous cholecysittis
#Acute gall stone pancreatitis
#Transaminitits and elevated alk.phos 2/2 above
IVF
Zosyn
MRCP
GI and GenSx consult
Slowly advance diet as tolerated
pain mgmt
IVF
follow LFT
#Afib, unspecified s/p PPM
Hold eliuais for possible surgical intervention, restart when OK with GenSx
Telemetry
Rate control
#DMtype 2 with neuropathy
Accuchecks
hold Lantus while NPO
Insulin SS
dextrose as needed if hypoglycemia
#HLD
#Crohns
#CAD s/p CABG
#Essential HTN
#HFrEF
watch for fluid overload
cont home meds
DVT ppx hep
Full code
I have spent at least 59min reviewing chart, test results, communication with consultants and direct patient care
Anticipated Discharge: > 48 hours
Subjective/Interval History
-
Date of Service: July 01, 2024
Objective Data
-
Labs:
Laboratory Results
07/01/24
06:37
WBC 3.6 L
Hgb 12.2 L
Hct 38.9 L
Plt Count 145
Sodium 142
Potassium 3.2 L
Chloride 110 H
Carbon Dioxide 26
BUN 9
Creatinine 1.1
Glucose 138 H
Calcium 8.3 L
Total Bilirubin 2.2 H
AST 185 H
ALT 325 H
Alkaline Phosphatase 224 H
Vital Signs:
Vital Signs
Temp Pulse Resp BP Pulse Ox
97.3 F 71 18 137/63 96
07/01/24 07:00 07/01/24 07:00 07/01/24 07:00 07/01/24 07:00 07/01/24 07:00
I&O
06/30/24 07/01/24 07/02/24
06:59 06:59 06:59
Intake Total 120 / 120 1420 / 1420
Balance 120 / 120 1420 / 1420
Review of Systems
-
History Source: Patient
All other systems: Reviewed and negative
Physical Exam
-
General: No Apparent Distress
HEENT: Normocephalic
Respiratory: Clear to Auscultation
Cardiac: Regular Rhythm
GI: Tender (RUQ)
Neuro: Awake, Alert, Oriented and AO x 3
--- NOTE | 2024-07-01 13:39 | CM ---
Chart reviewed and plan is to home no needs when stable.
Plan; Home no needs when stable.
--- NOTE | 2024-07-01 14:11 | PN.CDI ---
CDI
- -
CDI:
Physician Documentation Request
Admit Date: 06/29/24 21:54
Dear Doctor Rhiannon,
Please review the following and provide your response in the progress notes.
Clinical Indicators:
- 3/4 40 meq IV Potassium chloride given
Laboratory Tests
06/29/24 06/30/24 07/01/24
17:36 06:21 06:37
Potassium 4.9 3.6 D 3.2 L
Please provide a diagnosis for the above lab values that were monitored and treatment rendered:
Hypokalemia
Clinically insignificant abnormal lab value
Other (please specify)
Use of terms such as suspected, likely, concern for, or probable (associated with a specific diagnosis that is being evaluated, monitored, or treated as if it exists) are acceptable and can be coded in the inpatient setting, when documented at the
time of discharge.
Thank you,
Lico Burnham RN
CDI Specialist
Please use your independent medical judgment in providing your response.
[2024-07-01 15:10] VITALS: BP 151/72
[2024-07-01 16:20] LABS: Glucose - Point of Care 226 mg/dl (70-99)
[2024-07-01] MEDS: LIPITOR 80 MG PO (17:32)
[2024-07-01] MEDS: NOVOLOG FLEXPEN-LOW RESISTANCE 2 UNITS SC (17:32)
[2024-07-01] MEDS: D5/0.9% SODIUM CHLORIDE IV (19:03)
[2024-07-01 20:41] VITALS: BP 141/72
[2024-07-01 21:08] LABS: Glucose - Point of Care 213 mg/dl (70-99)
[2024-07-01 23:16] VITALS: BP 131/60
[2024-07-02] VITALS (8 sets, daily range): BP systolic 119–167; BP diastolic 58–77; BMI 29.3
[2024-07-02 00:23] LABS: Glucose - Point of Care 144 mg/dl (70-99)
[2024-07-02] MEDS: NOVOLOG FLEXPEN-LOW RESISTANCE SC ×4 (00:25→17:25)
[2024-07-02] MEDS: ZOSYN 50 IV ×3 (02:43→21:00)
[2024-07-02 06:21] LABS: Glucose - Point of Care 118 mg/dl (70-99)
[2024-07-02] MEDS: INSPRA 25 MG PO (08:41)
[2024-07-02] MEDS: THERAGRAN 1 TABLET PO (08:41)
[2024-07-02] MEDS: COREG 25 MG PO ×2 (08:41→21:00)
[2024-07-02] MEDS: PROTONIX 40 MG PO (08:41)
[2024-07-02] MEDS: ENTRESTO 97 MG/103 MG 1 TAB PO ×2 (08:41→21:00)
[2024-07-02 08:57] LABS: % Basophils 0.5 % (0-2); % Eosinophils 1.4 % (0-6); % Immature Granulocytes 0.5 % (0-0.5); % Lymphocytes 20.7 % (20.5-51.1); % Monocytes 10.7 % (1.7-9.3); % Neutrophils 66.2 % (42.2-75.2); Absolute Eosinophils 0.1 10^3/uL (0-0.7); Absolute Lymphocytes 0.9 10^3/uL (1.2-3.4); Absolute Monocytes 0.5 10^3/uL (0.1-0.6); Absolute Neutrophils 2.9 10^3/uL (1.4-6.5); Hematocrit 37.2 % (39.0-52.0); Hemoglobin 11.8 g/dL (13.0-18.0); Mean Corp Hgb Conc. 31.7 g/dL (33.0-37.0); Mean Corpuscular Hgb 30.2 pg (27.0-31.0); Mean Corpuscular Volume 95.1 fL (80.0-94.0); Mean Platelet Volume 9.9 fL (7.4-10.4); Nucleated Red Blood Cells % 0 % (-); Platelet Count 143 10^3/uL (130-400); Red Blood Cell Count 3.91 10^6/uL (4.70-6.10); Red Cell Dist. Width 16.7 % (11.5-14.5); White Blood Cell Count 4.3 10^3/uL (4.8-10.8)
[2024-07-02 09:21] LABS: ALT (SGPT) 216 U/L (0-50); AST (SGOT) 90 U/L (17-59); Albumin 3.5 g/dl (3.5-5.0); Alkaline Phosphatase 193 U/L (38-126); Blood Urea Nitrogen 6 mg/dl (9-20); Calcium 8.6 mg/dl (8.4-10.2); Carbon Dioxide 24 mmol/L (22-30); Chloride 109 mmol/L (98-107); Estimated Creatinine Clearance 60 ml/min; Glucose 158 mg/dl (70-99); Potassium 3.6 mmol/L (3.5-5.1); Sodium 141 mmol/L (135-145); Total Bilirubin 1.5 mg/dl (0.2-1.3); Total Protein 5.7 g/dl (6.3-8.2); eGFR > 60.00
--- NOTE | 2024-07-02 09:53 | W.PN.GS2 ---
Today's Communication / Plan
-
ERCP today, possible OR to follow versus more likely tomorrow
Assessment / Plan
-
Patient is a 73 yo M p/w pancreatitis likely gallstone in origin. MRCP yesterday positive, plan for ERCP today.
If timing works, may plan to do a laparoscopic cholecystectomy, possible open right after his ERCP today, but most likely surgery will be tomorrow.
-- Abx: Zosyn
-- NPO
Surgery will follow
Time Spent
Total Time Spent with Patient (in minutes): 20
Subjective Data
-
Date of Service: July 02, 2024
Interval Events:
No acute events overnight. MRCP with multiple stones. Slept well. Pain Controlled. Denies Nausea/Vomiting, +bowel function.
Objective Data
-
Intake and Output
07/01/24 07/02/24 07/03/24
06:59 06:59 06:59
Intake Total 1420 / 1420 900 / 900
Balance 1420 / 1420 900 / 900
Intake:
Oral fluids 120 / 120 760 / 760
IV fluids (Total) 1200 / 1200 140 / 140
IV piggybacks 100 / 100
Other:
Number of approximated MODERATE 3 2
amounts of urine
Vital Signs
Temp Pulse Resp BP Pulse Ox
98.3 F 73 16 142/72 97
07/02/24 07:23 07/02/24 07:23 07/02/24 07:23 07/02/24 07:23 07/02/24 07:23
Lab Results
07/02/24 08:19
07/02/24 08:19
Calcium 8.6 mg/dl (8.4-10.2) 07/02/24 08:19
Magnesium 1.9 mg/dl (1.6-2.3) 06/30/24 06:21
Total Bilirubin 1.5 mg/dl (0.2-1.3) H 07/02/24 08:19
Direct Bilirubin 1.3 mg/dl (0.0-0.4) H 06/30/24 06:21
AST 90 U/L (17-59) H 07/02/24 08:19
ALT 216 U/L (0-50) H 07/02/24 08:19
Alkaline Phosphatase 193 U/L (38-126) H 07/02/24 08:19
Total Protein 5.7 g/dl (6.3-8.2) L 07/02/24 08:19
Albumin 3.5 g/dl (3.5-5.0) 07/02/24 08:19
Physical Exam
-
GENERAL/NEURO: Awake, Alert, no distress
CHEST: Unlabored breathing on RA
ABDOMEN: Soft, Non-Tender, Non-Distended, generous midline incision/scar
Patient has a donaldson catheter: No
Patient has a central line: No
[2024-07-02 11:42] LABS: Glucose - Point of Care 159 mg/dl (70-99)
--- NOTE | 2024-07-02 12:22 | W.PN.HOSP.TC ---
Today's Communication/Plan
-
pending ERCP and cholecystectomy - cont Abx
Assessment / Plan
Assessment / Plan
73yo M with PMHx of HLD, Afib on Eliquis, AICD, PPM, DM, Crohns came with RUQ abdomina pain, found possible acute cholecystitis and gallstone pancreatitis
A/P:#
#Acute calculous cholecystis
#Acute gall stone pancreatitis
#Cholelithiasis
#Transaminitis and elevated alk.phos 2/2 above
IVF
Zosyn
MRCP showed MRCP evidence for choledocholithiasis with multiple stones in the mid to distal common bile duct, pending ERCP by GI
GenSx consult: cholecystectomy after ERCP
Slowly advance diet as tolerated
pain mgmt
IVF
follow LFT
#Afib, unspecified s/p PPM
Hold eliuais for possible surgical intervention, restart when OK with GenSx
Telemetry
Rate control
#DMtype 2 with neuropathy
Accuchecks
hold Lantus while NPO
Insulin SS
dextrose as needed if hypoglycemia
#Hypokalemai
replete and follow
#HLD
#Crohns
#CAD s/p CABG
#Essential HTN
#HFrEF
watch for fluid overload
cont home meds
DVT ppx hep
Full code
I have spent at least 39min reviewing chart, test results, communication with consultants and direct patient care
Anticipated Discharge: 24 - 48 hours
Subjective/Interval History
-
Date of Service: July 02, 2024
Objective Data
-
Labs:
Laboratory Results
07/02/24
08:19
WBC 4.3 L
Hgb 11.8 L
Hct 37.2 L
Plt Count 143
Sodium 141
Potassium 3.6
Chloride 109 H
Carbon Dioxide 24
BUN 6 L
Creatinine 1.0
Glucose 158 H
Calcium 8.6
Total Bilirubin 1.5 H
AST 90 H
ALT 216 H
Alkaline Phosphatase 193 H
Vital Signs:
Vital Signs
Temp Pulse Resp BP Pulse Ox
98.3 F 73 16 142/72 97
07/02/24 07:23 07/02/24 07:23 07/02/24 07:23 07/02/24 07:23 07/02/24 08:40
I&O
07/01/24 07/02/24 07/03/24
06:59 06:59 06:59
Intake Total 1420 / 1420 900 / 900
Balance 1420 / 1420 900 / 900
Review of Systems
-
History Source: Patient
Constitutional: Reports No Symptoms
Physical Exam
-
General: No Apparent Distress and Comfortable
Neuro: Awake, Alert, Oriented and AO x 3
Psych: Calm
--- NOTE | 2024-07-02 12:28 | CM ---
Home when stable, no needs.
Plan; Home no needs.
[2024-07-02] MEDS: ZOSYN IV (13:31)
[2024-07-02 14:11] LABS: Glucose - Point of Care 152 mg/dl (70-99)
--- NOTE | 2024-07-02 16:08 | W.PN.UPDATE ---
Update Note
Progress Note Update
Brief General Surgery update note:
ERCP noted, multiple stones cleared.
Will plan for surgery tomorrow. Okay for diet, n.p.o. at midnight.
[2024-07-02 17:20] LABS: Glucose - Point of Care 188 mg/dl (70-99)
[2024-07-02] MEDS: LIPITOR 80 MG PO (17:33)
[2024-07-02 23:47] LABS: Glucose - Point of Care 338 mg/dl (70-99)
[2024-07-02] MEDS: NOVOLOG FLEXPEN-LOW RESISTANCE 4 UNITS SC (23:59)
[2024-07-03] VITALS (14 sets, daily range): BP systolic 120–157; BP diastolic 40–73; BMI 29.6
[2024-07-03] MEDS: HEPARIN 5000 UNITS SC ×3 (01:01→16:15)
[2024-07-03] MEDS: ZOSYN 50 IV ×4 (01:03→20:02)
[2024-07-03 06:06] LABS: Glucose - Point of Care 232 mg/dl (70-99)
[2024-07-03] MEDS: NOVOLOG FLEXPEN-LOW RESISTANCE 300 UNITS SC (06:18)
[2024-07-03 08:07] LABS: % Basophils 0.2 % (0-2); % Immature Granulocytes 0.5 % (0-0.5); % Lymphocytes 15.8 % (20.5-51.1); % Monocytes 7.1 % (1.7-9.3); % Neutrophils 76.4 % (42.2-75.2); Absolute Lymphocytes 0.7 10^3/uL (1.2-3.4); Absolute Monocytes 0.3 10^3/uL (0.1-0.6); Absolute Neutrophils 3.3 10^3/uL (1.4-6.5); Hematocrit 35.6 % (39.0-52.0); Hemoglobin 11.9 g/dL (13.0-18.0); Mean Corp Hgb Conc. 33.4 g/dL (33.0-37.0); Mean Corpuscular Hgb 30.9 pg (27.0-31.0); Mean Corpuscular Volume 92.5 fL (80.0-94.0); Mean Platelet Volume 9.6 fL (7.4-10.4); Nucleated Red Blood Cells % 0 % (-); Platelet Count 148 10^3/uL (130-400); Red Blood Cell Count 3.85 10^6/uL (4.70-6.10); Red Cell Dist. Width 16.1 % (11.5-14.5); White Blood Cell Count 4.4 10^3/uL (4.8-10.8)
[2024-07-03 08:21] LABS: APTT 32.8 Sec (23.4-35.0); INR 1.09; PT 14.7 Sec (11.4-14.6)
[2024-07-03 09:00] LABS: ALT (SGPT) 186 U/L (0-50); AST (SGOT) 62 U/L (17-59); Albumin 3.8 g/dl (3.5-5.0); Alkaline Phosphatase 200 U/L (38-126); Blood Urea Nitrogen 12 mg/dl (9-20); Calcium 8.6 mg/dl (8.4-10.2); Carbon Dioxide 23 mmol/L (22-30); Chloride 107 mmol/L (98-107); Estimated Creatinine Clearance 50 ml/min; Glucose 246 mg/dl (70-99); Potassium 3.7 mmol/L (3.5-5.1); Sodium 139 mmol/L (135-145); Total Bilirubin 1.9 mg/dl (0.2-1.3); eGFR > 60.00
--- NOTE | 2024-07-03 09:05 | W.PN.GS2 ---
Today's Communication / Plan
-
`
Assessment / Plan
-
Assessment: 73 yo M p/w pancreatitis likely gallstone in origin.
PPD #1 status post ERCP sphincterotomy and extraction of choledocholithiasis
AFVSS
Reviewed with patient indications for cholecystectomy. Patient in agreement to proceed with cholecystectomy at index hospitalization.
Laparoscopic cholecystectomy was reviewed in detail the patient including the operative technique, alternative treatment options, benefits and potential risk such as but not limited to bleeding, infectious and room related complications, possible
higher risk of conversion to open cholecystectomy in the setting of his prior laparotomies with bowel resection as well as potential risks associated with adhesiolysis, risks of postoperative bile leak, common bile duct injury. We discussed the
typical postoperative recovery pending operative findings and procedure. Any of the patient's concerns or questions were fully addressed.
Plan: Patient add-on for OR schedule today
N.p.o. IV fluids awaiting OR timing
Continue Zosyn
Continue to hold therapeutic anticoagulation for OR
Subjective Data
-
Date of Service: July 03, 2024
Patient seen and examined. Feels well after ERCP yesterday.
No abdominal pain, no nausea, no vomiting, no abdominal bloating or distention.
Objective Data
-
Intake and Output
07/02/24 07/03/24 07/04/24
06:59 06:59 06:59
Intake Total 900 / 900 480 / 480
Balance 900 / 900 480 / 480
Intake:
Oral fluids 760 / 760 360 / 360
IV fluids (Total) 140 / 140 120 / 120
Other:
Number of approximated MODERATE 2 2
amounts of urine
Vital Signs
Temp Pulse Resp BP Pulse Ox
97.7 F 70 16 151/73 97
07/03/24 07:35 07/03/24 07:35 07/03/24 07:35 07/03/24 07:35 07/03/24 07:35
Lab Results
07/03/24 07:41
07/03/24 07:41
Calcium 8.6 mg/dl (8.4-10.2) 07/03/24 07:41
Magnesium 1.9 mg/dl (1.6-2.3) 06/30/24 06:21
Total Bilirubin 1.9 mg/dl (0.2-1.3) H 07/03/24 07:41
Direct Bilirubin 1.3 mg/dl (0.0-0.4) H 06/30/24 06:21
AST 62 U/L (17-59) H 07/03/24 07:41
ALT 186 U/L (0-50) H 07/03/24 07:41
Alkaline Phosphatase 200 U/L (38-126) H 07/03/24 07:41
Total Protein 6.0 g/dl (6.3-8.2) L 07/03/24 07:41
Albumin 3.8 g/dl (3.5-5.0) 07/03/24 07:41
Physical Exam
-
NAD AAOx3
ABD: Soft, nondistended, nontender, midline laparotomy surgical scar. Median sternotomy surgical scar. No hernias.
--- NOTE | 2024-07-03 09:08 | W.SUR.PREOP ---
Pre-Operative Surgical Note
-
I have examined this patient prior to the performance of the scheduled procedure.
The patient's condition is unchanged from the time of the current History and
Physical and the patient is able to undergo the scheduled procedure.
[2024-07-03] MEDS: THERAGRAN PO ×2 (10:00→10:05)
[2024-07-03] MEDS: ENTRESTO 97 MG/103 MG 1 TAB PO ×2 (10:05→20:02)
[2024-07-03] MEDS: PROTONIX 40 MG PO (10:05)
[2024-07-03] MEDS: COREG 25 MG PO ×2 (10:12→20:02)
[2024-07-03] MEDS: INSPRA 25 MG PO (10:12)
[2024-07-03] MEDS: FLUSH (NSS) 1 FLUSH IV (10:13)
--- NOTE | 2024-07-03 10:16 | W.PN.GI.CBS2 ---
Addendum entered and electronically signed by Ramiro Thompson MD 07/03/24 13:40:
I saw and examined the patient.
The ELECTRIC CAR OPERATOR or PA's note was reviewed and I agree with the note.
Comment: In OR for pau
REC:
s/p ERCP yesterday with sphicterotomy and stone extraction. OK to resume anticoagulation in 6 days
Will sign off. Please call back if needed
Original Note:
Today's Communication / Plan
-
#gallstone Pancreatitis
s/p ERCP 07/02 and for pau today
LFT's still mild elevation but no abdominal pain
NPO advance per surgical team
eliquis on hold per Dr. Davis resume 7 days post sphincterotomy
# renal lesion reviewed MRI with renal lesion also found -- his has seen urology and due for follow up OP MRI
Assessment / Plan
-
Assessment
Mr. Newton is a 73-year-old gentleman who presented to ER after having a severe episode of epigastric pain. He has an extensive past medical history of coronary artery disease with stents, A-fib, hypertension, hypercholesterolemia, GERD and
history of Crohn`s disease. At admission, his CBC was significant with a WBC count of 11.6 and his electrolytes, BUN/Cr were within the normal range. His LFTs was found elevated and Lipase over the 4000. Abdominal ultrasound showed
cholelithiasis with multiple stones, mild gallbladder thickening, no evidence of biliary ductal dilation and MRCP with choledocholithiasis with multiple stones in distal CBD, cholelithiasis with GB stones and mild GBWT HSM also noted renal mass.
07/01/24 MRCP
MRCP evidence for choledocholithiasis with multiple stones in the mid to distal common bile duct.
Cholelithiasis and gallbladder sludge with mild diffuse gallbladder wall thickening, compatible with findings on the recent abdominal ultrasound from 06/29/2024.
Hepatosplenomegaly.
Indeterminate 2.4 cm intermediate signal intensity lesion in the posterior left renal cortex, which could represent a complex cyst or solid mass. Recommend a follow-up renal mass protocol MRI without and with intravenous contrast, which could be
performed on a routine outpatient basis.
07/02 ERCP Tia igbson - A filling defect consistent with a stone was seen on the cholangiogram- Choledocholithiasis was found. Complete removal was accomplished by biliary sphincterotomy and balloon extraction.
- A biliary sphincterotomy was performed. The biliary tree was swept.
Impression
Gallstone pancreatitis
Transaminitis
CAD with multiple stents
Atrial fibrillation
GERD
History of Crohn's disease
known renal mass
HSM on imaging
Plan
#gallstone Pancreatitis
s/p ERCP 07/02 and for pau today
LFT's still mild elevation but no abdominal pain
NPO advance per surgical team
eliquis on hold per Dr. Davis resume 7 days post sphincterotomy
# renal lesion reviewed MRI with renal lesion also found -- his has seen urology and due for follow up OP MRI
Subjective
Subjective
Date of Service: July 03, 2024
NPO no stool recorded feeling well post ERCP
Objective
Data Reviewed
Laboratory Data:
Laboratory Results
07/03/24 07:41
07/03/24 07:41
Laboratory Results
PT 14.7 Sec (11.4-14.6) H 07/03/24 07:41
INR 1.09 07/03/24 07:41
APTT 32.8 Sec (23.4-35.0) 07/03/24 07:41
Magnesium 1.9 mg/dl (1.6-2.3) 06/30/24 06:21
Total Bilirubin 1.9 mg/dl (0.2-1.3) H 07/03/24 07:41
AST 62 U/L (17-59) H 07/03/24 07:41
ALT 186 U/L (0-50) H 07/03/24 07:41
Alkaline Phosphatase 200 U/L (38-126) H 07/03/24 07:41
Lipase 124 U/L (23-300) 07/01/24 06:37
Vital Signs and I&O:
Vital Signs
Temp Pulse Resp BP Pulse Ox
97.7 F 70 16 151/73 97
07/03/24 07:35 07/03/24 07:35 07/03/24 07:35 07/03/24 07:35 07/03/24 07:35
I&O
07/02/24 07/03/24 07/04/24
06:59 06:59 06:59
Intake Total 900 / 900 480 / 480 50 / 50
Balance 900 / 900 480 / 480 50 / 50
Physical Exam
Physical Exam
HEENT: Anicteric and Moist mucous membranes
Cardiology: Normal Sinus Rhythm
Pulmonary: Clear
GI: Soft, Non Distended and Non Tender
Extremities: No Edema
Neuro: Non Focal
--- NOTE | 2024-07-03 11:08 | W.PN.HOSP.TC ---
Today's Communication/Plan
-
for cholecystectomy
follow AM labs
Assessment / Plan
Assessment / Plan
73yo M with PMHx of HLD, Afib on Eliquis, AICD, PPM, DM, Crohns came with RUQ abdomina pain, found possible acute cholecystitis and gallstone pancreatitis
A/P:#
#Acute calculous cholecystis
#Acute gall stone pancreatitis
#Cholelithiasis
#Transaminitis and elevated alk.phos 2/2 above
IVF
Zosyn
MRCP showed MRCP evidence for choledocholithiasis with multiple stones in the mid to distal common bile duct, pending ERCP by GI
GenSx consult: cholecystectomy after ERCP
Slowly advance diet as tolerated
pain mgmt
IVF
follow LFT
#Afib, unspecified s/p PPM
Hold eliuais for possible surgical intervention, restart when OK with GenSx
Telemetry
Rate control
#DMtype 2 with neuropathy
Accuchecks
hold Lantus while NPO
Insulin SS
dextrose as needed if hypoglycemia
#Hypokalemai
replete and follow
#HLD
#Crohns
#CAD s/p CABG
#Essential HTN
#HFrEF
watch for fluid overload
cont home meds
DVT ppx hep
Full code
I have spent at least 39min reviewing chart, test results, communication with consultants and direct patient care
Anticipated Discharge: Within 24 hours
Subjective/Interval History
-
Date of Service: July 03, 2024
Objective Data
-
Labs:
Laboratory Results
07/03/24
07:41
WBC 4.4 L
Hgb 11.9 L
Hct 35.6 L
Plt Count 148
PT 14.7 H
INR 1.09
APTT 32.8
Sodium 139
Potassium 3.7
Chloride 107
Carbon Dioxide 23
BUN 12
Creatinine 1.2
Glucose 246 H
Calcium 8.6
Total Bilirubin 1.9 H
AST 62 H
ALT 186 H
Alkaline Phosphatase 200 H
Vital Signs:
Vital Signs
Temp Pulse Resp BP Pulse Ox
97.7 F 70 16 151/73 97
07/03/24 07:35 07/03/24 07:35 07/03/24 07:35 07/03/24 07:35 07/03/24 07:35
I&O
07/02/24 07/03/24 07/04/24
06:59 06:59 06:59
Intake Total 900 / 900 480 / 480 50 / 50
Balance 900 / 900 480 / 480 50 / 50
Review of Systems
-
History Source: Patient
All other systems: Reviewed and negative
Physical Exam
-
General: No Apparent Distress
HEENT: Normocephalic
Respiratory: Clear to Auscultation
Cardiac: Regular Rhythm
GI: Soft, Nondistended and Tender (RUQ)
Neuro: Awake, Alert, Oriented and AO x 3
Psych: Calm
[2024-07-03] MEDS: NOVOLOG FLEXPEN-LOW RESISTANCE SC (12:00)
[2024-07-03 12:03] LABS: Glucose - Point of Care 181 mg/dl (70-99)
--- NOTE | 2024-07-03 13:39 | CM ---
Chart reviewed and plan is to home when stable.
Plan; Home when stable.
--- NOTE | 2024-07-03 13:44 | W.IMMPOSTOP ---
Addendum entered and electronically signed by Jeronimo London MD 07/03/24 13:54:
#[id number]
Original Note:
Surgical Immed Post Op Note
-
Primary Surgeon: Jeronimo London MD
Assisting Surgeon: Miguelangel EVANS
Zohreh Alaniz
Pre-op Diagnosis: Choledocholithiasis, gallstone mediated pancreatitis, gallstones
Post-op Diagnosis: Choledocholithiasis, gallstone mediated pancreatitis, chronic calculus cholecystitis
Procedure Performed: Laparoscopic cholecystectomy
Anesthesia Type: GETA +0.25% Marcaine
Specimen / Cultures: Gallbladder
Estimated Blood Loss: 8 mL
Complications: none immediate
Operative Findings: Petrona approach for entry into the abdomen in the epigastrium. No adhesions to the abdominal wall requiring lysis for typical trocar placement. Perihepatic adhesions involving omentum and retroperitoneal fat released to expose
gallbladder. Cholecystectomy performed uneventfully. Cystic duct, cystic artery and posterior cystic artery branch individual identified and controlled with hemoclips. Gallbladder removed off liver bed intact.
Plan: Routine postoperative care with low-fat diet as tolerated
Therapeutic anticoagulation from a general surgical standpoint is typically held for 72 hours postop; reviewing GI note they recommended 7 days post ERCP
[2024-07-03] MEDS: ZOFRAN 4 MG IV (14:37)
[2024-07-03 14:43] LABS: Glucose - Point of Care 211 mg/dl (70-99)
[2024-07-03] MEDS: NOVOLOG vial 2 UNITS SC (14:47)
[2024-07-03 16:38] LABS: Glucose - Point of Care 216 mg/dl (70-99)
[2024-07-03] MEDS: NOVOLOG FLEXPEN-LOW RESISTANCE 2 UNITS SC (18:46)
[2024-07-03] MEDS: LIPITOR 80 MG PO (18:46)
[2024-07-03 21:16] LABS: Glucose - Point of Care 342 mg/dl (70-99)
[2024-07-04] MEDS: HEPARIN SC (00:07)
[2024-07-04] MEDS: ZOSYN 50 IV ×2 (01:41→09:04)
[2024-07-04 03:44] VITALS: BP 138/75
[2024-07-04 07:04] VITALS: BP 147/68
--- NOTE | 2024-07-04 07:05 | W.PN.GS2 ---
Today's Communication / Plan
-
`
Assessment / Plan
-
Assessment: 73-year-old male POD #1 status post lap pau; PPD #2 status post ERCP sphincterotomy stone
Presented with gallstone pancreatitis, choledocholithiasis
AFVSS
Doing well postop
Plan: Stable for discharge home today surgical standpoint.
Follow-up with myself, Dr. London in 2 to 3 weeks
Surgical discharge instructions reviewed
Subjective Data
-
Date of Service: July 04, 2024
Patient seen and examined. Sitting at bedside. Offers no complaints and feeling well. Eager for discharge home.
Minimal postoperative discomfort, no pain.
Tolerating diet without nausea
Loose bowels -expected
Objective Data
-
Intake and Output
07/03/24 07/04/24 07/05/24
06:59 06:59 06:59
Intake Total 480 / 480 590 / 590
Balance 480 / 480 590 / 590
Intake:
Oral fluids 360 / 360 240 / 240
IV fluids (Total) 120 / 120 200 / 200
Normosal 200 / 200
IV piggybacks 150 / 150
Other:
Number of approximated MODERATE 2 3
amounts of urine
Vital Signs
Temp Pulse Resp BP Pulse Ox
98.0 F 74 18 138/75 93
07/04/24 03:44 07/04/24 03:44 07/04/24 03:44 07/04/24 03:44 07/04/24 03:44
Calcium 8.6 mg/dl (8.4-10.2) 07/03/24 07:41
Magnesium 1.9 mg/dl (1.6-2.3) 06/30/24 06:21
Total Bilirubin 1.9 mg/dl (0.2-1.3) H 07/03/24 07:41
Direct Bilirubin 1.3 mg/dl (0.0-0.4) H 06/30/24 06:21
AST 62 U/L (17-59) H 07/03/24 07:41
ALT 186 U/L (0-50) H 07/03/24 07:41
Alkaline Phosphatase 200 U/L (38-126) H 07/03/24 07:41
Total Protein 6.0 g/dl (6.3-8.2) L 07/03/24 07:41
Albumin 3.8 g/dl (3.5-5.0) 07/03/24 07:41
Physical Exam
-
NAD AAOx3
ABD: Soft, nondistended, minimal tenderness at incision sites. Incisions with glue dressings.
[2024-07-04 07:19] LABS: % Basophils 0.1 % (0-2); % Eosinophils 0.1 % (0-6); % Immature Granulocytes 0.6 % (0-0.5); % Lymphocytes 11.4 % (20.5-51.1); % Monocytes 7.4 % (1.7-9.3); % Neutrophils 80.4 % (42.2-75.2); Absolute Immature Granulocytes 0.1 10^3/uL (0-0.05); Absolute Monocytes 0.6 10^3/uL (0.1-0.6); Hematocrit 36.6 % (39.0-52.0); Hemoglobin 11.9 g/dL (13.0-18.0); Mean Corp Hgb Conc. 32.5 g/dL (33.0-37.0); Mean Corpuscular Hgb 30.7 pg (27.0-31.0); Mean Corpuscular Volume 94.6 fL (80.0-94.0); Mean Platelet Volume 9.6 fL (7.4-10.4); Nucleated Red Blood Cells % 0 % (-); Platelet Count 167 10^3/uL (130-400); Red Blood Cell Count 3.87 10^6/uL (4.70-6.10); Red Cell Dist. Width 16.6 % (11.5-14.5); White Blood Cell Count 8.7 10^3/uL (4.8-10.8)
[2024-07-04 07:56] LABS: Glucose - Point of Care 211 mg/dl (70-99)
[2024-07-04 08:23] LABS: ALT (SGPT) 163 U/L (0-50); AST (SGOT) 72 U/L (17-59); Albumin 3.6 g/dl (3.5-5.0); Alkaline Phosphatase 158 U/L (38-126); Blood Urea Nitrogen 16 mg/dl (9-20); Calcium 8.4 mg/dl (8.4-10.2); Carbon Dioxide 24 mmol/L (22-30); Chloride 106 mmol/L (98-107); Direct Bilirubin 0.4 mg/dl (0.0-0.4); Estimated Creatinine Clearance 43 ml/min; Glucose 224 mg/dl (70-99); Potassium 3.9 mmol/L (3.5-5.1); Sodium 140 mmol/L (135-145); Total Bilirubin 1.3 mg/dl (0.2-1.3); Total Protein 5.9 g/dl (6.3-8.2); eGFR 53.07
[2024-07-04] MEDS: THERAGRAN 1 TABLET PO (09:00)
[2024-07-04] MEDS: ENTRESTO 97 MG/103 MG 1 TAB PO ×2 (09:00→19:53)
[2024-07-04] MEDS: PROTONIX 40 MG PO (09:00)
[2024-07-04] MEDS: INSPRA 25 MG PO (09:01)
[2024-07-04] MEDS: COREG 25 MG PO ×2 (09:01→19:53)
[2024-07-04] MEDS: HEPARIN 5000 UNITS SC ×3 (09:01→23:52)
[2024-07-04] MEDS: NOVOLOG FLEXPEN-LOW RESISTANCE 2 UNITS SC ×2 (09:02→12:15)
--- NOTE | 2024-07-04 11:16 | W.PN.HOSP.TC ---
Today's Communication/Plan
-
repeat BMP, D/C if improving, since LFT improving
top Abx as source control achieved
Assessment / Plan
Assessment / Plan
73yo M with PMHx of HLD, Afib on Eliquis, HFrEF (30%) AICD, PPM, DM, Crohns came with RUQ abdominal pain, found possible acute cholecystitis and gallstone pancreatitis, s/p ERCP on 07/02/24 with resolution of choledocholithiasis, s/p lap
cholecystectomy on 07/04/24. Developed Cr elevation
A/P:#
#Acute calculous cholecystis
#Acute gall stone pancreatitis
#Cholelithiasis
#Transaminitis and elevated alk.phos 2/2 above
IVF
Zosyn
MRCP showed MRCP evidence for choledocholithiasis with multiple stones in the mid to distal common bile duct, pending ERCP by GI
GenSx consult: cholecystectomy after ERCP
Slowly advance diet as tolerated
pain mgmt
IVF
follow LFT
#Elevated Cr withouyt JACKLYN
known CKD as per patient
most likely 2/2 recent Sx
repeat BMP - if trending up - gentle IVF with close monitoring to avoid fluid overload with EF 30%
#Afib, unspecified s/p PPM
Hold eliuais for possible surgical intervention, restart when OK with GenSx
Telemetry
Rate control
#DMtype 2 with neuropathy
Accuchecks
hold Lantus while NPO
Insulin SS
dextrose as needed if hypoglycemia
#Hypokalemai
replete and follow
#HLD
#Crohns
#CAD s/p CABG
#Essential HTN
#HFrEF
watch for fluid overload
cont home meds
DVT ppx hep
Full code
I have spent at least 39min reviewing chart, test results, communication with consultants and direct patient care
Anticipated Discharge: Within 24 hours
Subjective/Interval History
-
Date of Service: July 04, 2024
Objective Data
-
Labs:
Laboratory Results
07/04/24 07/04/24
07:10 14:00
WBC 8.7
Hgb 11.9 L
Hct 36.6 L
Plt Count 167
Sodium 140 Pending
Potassium 3.9 Pending
Chloride 106 Pending
Carbon Dioxide 24 Pending
BUN 16 Pending
Creatinine 1.4 H Pending
Glucose 224 H Pending
Calcium 8.4 Pending
Total Bilirubin 1.3
AST 72 H
ALT 163 H
Alkaline Phosphatase 158 H
Vital Signs:
Vital Signs
Temp Pulse Resp BP Pulse Ox
97.7 F 72 18 147/68 95
07/04/24 07:04 07/04/24 07:04 07/04/24 07:04 07/04/24 07:04 07/04/24 07:04
I&O
07/03/24 07/04/24 07/05/24
06:59 06:59 06:59
Intake Total 480 / 480 590 / 590
Balance 480 / 480 590 / 590
Review of Systems
-
History Source: Patient
All other systems: Reviewed and negative
Physical Exam
-
General: No Apparent Distress
HEENT: Normocephalic
Cardiac: Regular Rhythm
GI: Soft, Nontender and Nondistended
Skin: Warm
Neuro: Awake, Alert, Oriented and AO x 3
Psych: Calm
[2024-07-04 11:39] LABS: Glucose - Point of Care 246 mg/dl (70-99)
--- NOTE | 2024-07-04 13:47 | CM ---
Chart reviewed home no needs when stable.
Plan; Home no needs.
[2024-07-04 14:29] LABS: Blood Urea Nitrogen 18 mg/dl (9-20); Calcium 8.6 mg/dl (8.4-10.2); Carbon Dioxide 25 mmol/L (22-30); Chloride 103 mmol/L (98-107); Estimated Creatinine Clearance 43 ml/min; Glucose 216 mg/dl (70-99); Potassium 3.7 mmol/L (3.5-5.1); Sodium 138 mmol/L (135-145); eGFR 53.07
[2024-07-04] MEDS: NSS 1000 IV (15:32)
[2024-07-04 15:34] VITALS: BP 131/60
[2024-07-04] MEDS: LIPITOR 80 MG PO (17:21)
[2024-07-04 17:27] LABS: Glucose - Point of Care 185 mg/dl (70-99)
[2024-07-04] MEDS: NOVOLOG FLEXPEN-LOW RESISTANCE 1 UNITS SC (17:27)
[2024-07-04 19:37] VITALS: BP 136/60
[2024-07-04 21:11] LABS: Glucose - Point of Care 204 mg/dl (70-99)
[2024-07-04 23:16] VITALS: BP 116/58
[2024-07-05 05:31] VITALS: BMI 30.5
[2024-07-05 07:08] LABS: Blood Urea Nitrogen 18 mg/dl (9-20); Calcium 8.4 mg/dl (8.4-10.2); Carbon Dioxide 23 mmol/L (22-30); Chloride 111 mmol/L (98-107); Estimated Creatinine Clearance 61 ml/min; Glucose 181 mg/dl (70-99); Potassium 3.2 mmol/L (3.5-5.1); Sodium 141 mmol/L (135-145); eGFR > 60.00
[2024-07-05 07:30] VITALS: BP 146/60
[2024-07-05 07:41] LABS: Glucose - Point of Care 167 mg/dl (70-99)
[2024-07-05] MEDS: NOVOLOG FLEXPEN-LOW RESISTANCE 1 UNITS SC (07:50)
[2024-07-05] MEDS: ENTRESTO 97 MG/103 MG 1 TAB PO (07:51)
[2024-07-05] MEDS: THERAGRAN 1 TABLET PO (07:51)
[2024-07-05] MEDS: COREG 25 MG PO (07:51)
[2024-07-05] MEDS: PROTONIX 40 MG PO (07:51)
[2024-07-05] MEDS: INSPRA 25 MG PO (07:51)
[2024-07-05] MEDS: NSS 1000 IV (07:52)
[2024-07-05] MEDS: HEPARIN 5000 UNITS SC (07:52)
[2024-07-05] MEDS: KCL 40 MEQ PO (08:25)
--- NOTE | 2024-07-05 09:08 | W.PN.HOSP.TC ---
Today's Communication/Plan
-
dc
Assessment / Plan
Assessment / Plan
73yo M with PMHx of HLD, Afib on Eliquis, HFrEF (30%) AICD, PPM, DM, Crohns came with RUQ abdominal pain, found possible acute cholecystitis and gallstone pancreatitis, s/p ERCP on 07/02/24 with resolution of choledocholithiasis, s/p lap
cholecystectomy on 07/04/24. Developed Cr elevation
A/P:#
#Acute calculous cholecystis
#Acute gall stone pancreatitis
#Cholelithiasis
#Transaminitis and elevated alk.phos 2/2 above
IVF
Zosyn
MRCP showed MRCP evidence for choledocholithiasis with multiple stones in the mid to distal common bile duct, pending ERCP by GI
GenSx consult: cholecystectomy after ERCP
Slowly advance diet as tolerated
pain mgmt
IVF
follow LFT
#Elevated Cr without JACKLYN
known CKD as per patient
most likely 2/2 recent Sx
resolved on IVF
#Afib, unspecified s/p PPM
Hold eliuais for possible surgical intervention, restart when OK with GenSx
Telemetry
Rate control
#DMtype 2 with neuropathy
Accuchecks
hold Lantus while NPO
Insulin SS
dextrose as needed if hypoglycemia
#Hypokalemia chronic
replete and follow
#HLD
#Crohns
#CAD s/p CABG
#Essential HTN
#HFrEF
watch for fluid overload
cont home meds
DVT ppx hep
Full code
I have spent at least 39min reviewing chart, test results, communication with consultants and direct patient care
Anticipated Discharge: Today
Subjective/Interval History
-
Date of Service: July 05, 2024
Objective Data
-
Labs:
Laboratory Results
07/05/24
06:30
Sodium 141
Potassium 3.2 L
Chloride 111 H
Carbon Dioxide 23
BUN 18
Creatinine 1.0
Glucose 181 H
Calcium 8.4
Vital Signs:
Vital Signs
Temp Pulse Resp BP Pulse Ox
97.5 F 71 18 146/60 93
07/05/24 07:30 07/05/24 07:30 07/05/24 07:30 07/05/24 07:30 07/05/24 07:30
I&O
07/04/24 07/05/24 07/06/24
06:59 06:59 07:59
Intake Total 590 / 590 2160 / 2160
Balance 590 / 590 2160 / 2160
Review of Systems
-
History Source: Patient
All other systems: Reviewed and negative
Physical Exam
-
General: No Apparent Distress
Neuro: Awake, Alert, Oriented and AO x 3
Psych: Calm
[2024-07-05 09:09] LABS: Magnesium 1.7 mg/dl (1.6-2.3)
--- NOTE | 2024-07-05 09:12 | W.DCSUMMARY ---
Discharge Summary
Discharge Data
Date of Admission: 06/29/24
Date of Discharge: 07/05/24
-
Pending Results: No
Hospital Course
73yo M with PMHx of HLD, Afib on Eliquis, HFrEF (30%) AICD, PPM, DM, Crohns came with RUQ abdominal pain, found possible acute cholecystitis and gallstone pancreatitis, s/p ERCP with sphyncerotomy on 07/02/24 with resolution of choledocholithiasis,
s/p lap cholecystectomy on 07/04/24. Developed Cr elevation after Sx that resolved on IVF. Medically stable for d/c home. Potassium on the day of d/c was repleted. Eliquis advised to be restarted on 07/09/24
I have spent at least 39min reviewing chart, test results, communication with consultants and direct patient care
Patient was managed for
#Acute calculous cholecystis
#Acute gall stone pancreatitis
#Cholelithiasis
#Transaminitis and elevated alk.phos 2/2 above
#Elevated Cr without JACKLYN
#Afib, unspecified s/p PPM
#DM type 2 with neuropathy
#Hypokalemia chronic
#HLD
#Crohns
#CAD s/p CABG
#Essential HTN
#HFrEF
Discharge Plan
-
Patient Disposition: Home (Routine Discharge)
Discharge Diagnosis/Procedures: Gallstone pancreatitis, choledocholithiasis, cholecystitis. ERCP sphincterotomy. Laparoscopic cholecystectomy
Condition: Good
Diet: As tolerated, Low Fat and Diabetic, Carb Controlled
Additional Diets: Smaller meals after surgery as abdominal bloating and distention may be common for the first few days.
Activity: No strenuous activity
Additional Activity: No lifting over 20 pounds for 3 to 4 weeks postop
Driving Restrictions: No driving for 1 to 2 days or if using narcotics
Wound Care: Glue at surgical sites typically peels off in 2 to 3 weeks
Activity Restrictions/Additional Instructions:
�Jeronimo London MD [facility] General Surgery
[facility]
[address], [address]
[place] [address]
[phone]
Post-Operative Instructions for Gallbladder Surgery
The incision sites are sealed with a surgical glue dressing.� It is safe to shower at any time after surgery when the glue is dry.� Let shower water run over the incisions and then pat dry.
Glue dressing typically peels off in 2-3 weeks.
Abdominal/incisional pain and discomfort, shoulder/scapular pain, bloating, and mild nausea, as well as bruising/stiffness and swelling at the incision sites are common after surgery.� If felt to be excessive, notify us.
Please start postoperative pain management using over the counter medications such as Tylenol and Ibuprofen, per instructions on the bottle, as long as there are no medical reasons why you cannot take these medications.
Ice the incisions sites for 20 minutes every hour or so to help with postoperative incisional pain and reduce postoperative surgical site swelling.� Take care NOT to get an ice burn on the skin surface.
A warm heating pad is often helpful to alleviate shoulder/scapular back pains after laparoscopic procedures.� This pain typically dissipates 24-72hrs post op.
Transition to a low fat diet as tolerated after surgery if not experiencing postoperative nausea or significant bloating/distention.� Some fatty food intolerance may occur shortly after surgery (cramps,bloating, nausea,diarrhea with fat intake).
Constipation is common following surgery and postoperative narcotic use.� May use a stool softener such as Colace (100 mg 2x day) to prevent constipation
If no BM 24hrs after surgery, recommend starting daily Miralax
If no BM in 24-48hrs after starting Miralax --> recommend then using a dose of magnesium citrate or milk of magnesia with a Senokot tablet to help alleviate post operative constipation as long as there is no nausea/vomiting and passing gas.
Resume all preoperative medications as prescribed, unless directed otherwise.
Do not drive or drink alcohol for 24 hrs after having anesthesia or while taking narcotic pain medications.
Resume regular daily light activities, such as walking, standing and going up/down stairs as tolerated within 24hrs of surgery.� Please refrain from lifting over 20 lbs or strenuous exercise until postoperative follow up visit &/or approximately
3-4 weeks.�
Call the office with a fever above 101� F, nausea with vomiting, severe abdominal pain, yellowing of skin or eyes, spreading redness and drainage from incision sites or with any concerns/questions.
If not arranged prior to surgery, please call the office to schedule or confirm your 2 week� postoperative surgical follow-up office visit with Dr. London.
Referrals:
Kezia Hagen DO [Family Provider] -
Jeronimo London MD [Active] - in two to three weeks
Additional Discharge Medication Instructions: Hold Eliquis until 07/09/24
Prescriptions:
Continued
atorvastatin [Lipitor] 80 mg Tablet
80 mg PO QPM
carvedilol [Coreg] 25 mg Tablet
25 mg PO BID
therapeutic multivitamin Tablet
1 tab PO DAILY
ascorbic acid (vitamin C) [Vitamin C] 500 mg Tablet
500 mg PO BID
pantoprazole [Protonix] 40 mg Tablet,Delayed Release (Dr/Ec)
40 mg PO DAILY
eplerenone 25 mg Tablet
25 mg PO DAILY
omega-3 fatty acids Capsule
1,000 mg PO QPM
cholecalciferol (vitamin D3) [Vitamin D3] 25 mcg (1,000 unit) Tablet
50 mcg PO DAILY
insulin glargine 100 unit/mL (3 mL) Insulin Pen
28 unit SC HS
potassium chloride 20 mEq Tablet Extended Release
20 meq PO QPM
Jardiance 25 mg Tablet
12.5 mg PO DAILY
sacubitril-valsartan [Entresto] 97-103 mg Tablet
1 tab PO BID
Held
Eliquis 5 mg Tablet
5 mg PO BID
Hold Instructions: Resume on 07/09/24.
Discharge Orders:
Discharge Patient (As Directed); Ordered 07/05/24
Ordered By: Artur Jurado
Discharge Date and Time
Print Language: ROMANIAN
--- NOTE | 2024-07-05 09:48 | CM ---
CM reviewed chart, patient seen bedside, discussed plan for discharge today. Patient reports no needs upon discharge, confirms transportation home. IMM reviewed, signed, placed in copy, declines copy. CM will continue to follow for all discharge
planning needs.
Plan; home no needs.
== END 2024-07-05 10:17 | disposition home or self-care (01) | DRG 418 ==
LOC: 4 WEST ACU 21:54
PROVIDERS: Emergency Medicine; Internal Medicine Gastroenterology; Nurse Practitioner Adult Health; Registered Nurse; Student in an Organized Health Care Education/Training Program; Surgery; ADMITTING PHYSICIAN Internal Medicine; ATTENDING PHYSICIAN Internal Medicine; CONSULT PHYSICIAN Internal Medicine Gastroenterology; CONSULT PHYSICIAN Surgery; EMERGENCY PHYSICIAN Student in an Organized Health Care Education/Training Program; FAMILY PHYSICIAN Internal Medicine
PROC: BF101ZZ Fluoroscopy of Bile Ducts using Low Osmolar Contrast (ICD-10-PCS; 2024-07-02)
PROC: 0FC98ZZ Extirpation of Matter from Common Bile Duct, Via Natural or Artificial Opening Endoscopic (ICD-10-PCS; 2024-07-02)
PROC: 0FT44ZZ Resection of Gallbladder, Percutaneous Endoscopic Approach (ICD-10-PCS; 2024-07-03)
DX: K85.10 Biliary acute pancreatitis without necrosis or infection (principal); I13.0 Hypertensive heart and chronic kidney disease with heart failure and stage 1 through stage 4 chronic kidney disease, or unspecified chronic kidney disease; K50.90 Crohn's disease, unspecified, without complications; K80.64 Calculus of gallbladder and bile duct with chronic cholecystitis without obstruction; I50.20 Unspecified systolic (congestive) heart failure; I48.91 Unspecified atrial fibrillation; Z95.0 Presence of cardiac pacemaker; E11.40 Type 2 diabetes mellitus with diabetic neuropathy, unspecified; E87.6 Hypokalemia; E78.00 Pure hypercholesterolemia, unspecified; I25.10 Atherosclerotic heart disease of native coronary artery without angina pectoris; Z95.1 Presence of aortocoronary bypass graft; N18.9 Chronic kidney disease, unspecified; E11.22 Type 2 diabetes mellitus with diabetic chronic kidney disease; Z79.01 Long term (current) use of anticoagulants; K21.9 Gastro-esophageal reflux disease without esophagitis; I25.5 Ischemic cardiomyopathy; Z87.891 Personal history of nicotine dependence; Z79.4 Long term (current) use of insulin; Z90.49 Acquired absence of other specified parts of digestive tract; Z79.899 Other long term (current) drug therapy; Z79.84 Long term (current) use of oral hypoglycemic drugs; Z95.5 Presence of coronary angioplasty implant and graft; N28.1 Cyst of kidney, acquired; K82.8 Other specified diseases of gallbladder; K66.0 Peritoneal adhesions (postprocedural) (postinfection)
CPT/HCPCS: 88304; 74181; 74330; 76000; 76700; 80048; 80053; 82248; 82962; 83690; 83735; 84478; 84484; 85025; 85027; 85610; 85730; 86850; 86900; 86901; 93005; 96361; 96374; 96375; 99285; C1769

== ENCOUNTER → 2024-07-16 13:41 | Outpatient (REF) | payer OTHER, SELFPAY | LOC: MRI 13:41 | PROVIDERS: ATTENDING PHYSICIAN Urology; FAMILY PHYSICIAN Internal Medicine; REFERRING PHYSICIAN Internal Medicine Cardiovascular Disease | DX: M54.12 Radiculopathy, cervical region (principal); Z95.810 Presence of automatic (implantable) cardiac defibrillator; D41.02 Neoplasm of uncertain behavior of left kidney | CPT/HCPCS: 72141; 74183; A9575 ==

== ENCOUNTER 2024-09-09 23:00 | Emergency (ER) | payer OTHER, SELFPAY ==
[2024-09-09 23:02] VITALS: BP 167/74
[2024-09-10] MEDS: NEO-SYNEPHRINE 0.5% NASAL SPRAY 1 SPRAY NASAL (01:47)
--- NOTE | 2024-09-10 01:50 | ED.GENMED ---
History of Present Illness
General
Chief Complaint: Nose Bleed
Source: patient and spouse
Exam Limitations: none
Time Seen by Provider: 09/10/24 01:09
Nursing documentation reviewed up to this point in time: agreed with
History of Present Illness
History of Present Illness:
73-year-old male presents to the emergency department with left nostril nosebleed. He is due to see Dr. Ordaz, his ear nose and throat doctor tomorrow. States that he went to urgent care yesterday for nosebleed and they cauterized it. Tonight,
approximately 10 PM it started to bleed again so he came into the ER. He is on Eliquis for atrial fibrillation. Denies headache, blurry vision, vomiting, chest pain, or shortness of breath.
Past History
Past History
ED Past Medical History: Arrthythmia, CAD, IDDM and Other (Crohns)
Social History
Tobacco: Non-smoker
Alcohol: None
Review of Systems
Review of Systems
Allergies reviewed?: Yes
All Other Systems: ROS reviewed and negative except as documented in HPI and ROS
Constitutional: Reports no symptoms
EENT: Reports other (Left nostril epistaxis)
Respiratory: Reports no symptoms
Cardiac: Reports no symptoms
ABD/GI: Reports no symptoms
: Reports no symptoms
Musculoskeletal: Reports no symptoms
Skin: Reports no symptoms
Neurological: Reports no symptoms
Endocrine: Reports no symptoms
Hematologic/Lymphatic: Reports no symptoms
Psychiatric: Reports no symptoms
Phy Exam
General Physical Exam
General Presentation: well appearing and mild distress
General age: appears stated age
General Mental: alert
General Hydration: appears well hydrated
ENT Exam
ENT Exam: other (Dried blood in both naris)
Pulmonary Exam
Pulmonary Exam: no respiratory distress and no cough
Neurological Exam
Neurological Exam: alert and oriented x3
Musculoskeletal Exam
Musculoskeletal Exam: full ROM, no edema and neuro vasc intact
Skin Exam
Skin Exam: normal color and warm/dry
Psychiatric Exam
Psychiatric Exam: normal mood/affect
Course
Orders/Labs/Results
Orders:
Orders
09/10/24 01:44
Phenylephrine 0.5% Regular Spr [Avtar-Synephrine 0.5% Nasal [place]] 1 spray .ROUTE .STK-MED ONE
09/10/24 01:46
Phenylephrine 0.5% Regular Spr [Avtar-Synephrine 0.5% Nasal [place]] 1 spray NASAL NOW STA
Vital Signs
Initial and Last Documented VS:
Initial Vital Signs
Temp Pulse Resp BP Pulse Ox
98.0 F 72 20 167/74 97
09/09/24 23:02 09/09/24 23:02 09/09/24 23:02 09/09/24 23:02 09/09/24 23:02
Last Documented Vital Signs
Temp Pulse Resp BP Pulse Ox
98.0 F 72 18 147/72 97
09/09/24 23:02 09/10/24 02:35 09/10/24 02:35 09/10/24 02:35 09/10/24 02:35
Procedures
Nosebleed
Drug treatment: Neosynephrine
Treatment: Merocel packing
Post treatment bleeding: none- good control
*Critical Care Note
Total Time (30-74mins, 75-104mins- exclusive of procedures): Not Applicable
ED Attending Note
-
Portions of this chart may have been created with voice recognition software.� Occasional wrong word or��sound alike� substitutions may have occurred due to the inherent limitations of voice recognition software.
Discharge Plan
Departure
Patient Disposition: Home (Routine Discharge)
Date of Disposition: 09/10/24
Time of Disposition: 02:42
Patient with high blood pressure during this ER visit?: Yes
Condition: Good
Discharge Problem:
Acute anterior epistaxis
Instructions: Nosebleeds (DC), BLOOD PRESSURE
Prescriptions:
No Action
atorvastatin [Lipitor] 80 mg Tablet
80 mg PO QPM
carvedilol [Coreg] 25 mg Tablet
25 mg PO BID
therapeutic multivitamin Tablet
1 tab PO DAILY
ascorbic acid (vitamin C) [Vitamin C] 500 mg Tablet
500 mg PO BID
pantoprazole [Protonix] 40 mg Tablet,Delayed Release (Dr/Ec)
40 mg PO DAILY
eplerenone 25 mg Tablet
25 mg PO DAILY
omega-3 fatty acids Capsule
1,000 mg PO QPM
cholecalciferol (vitamin D3) [Vitamin D3] 25 mcg (1,000 unit) Tablet
50 mcg PO DAILY
insulin glargine 100 unit/mL (3 mL) Insulin Pen
28 unit SC HS
Eliquis 5 mg Tablet
5 mg PO BID
potassium chloride 20 mEq Tablet Extended Release
20 meq PO QPM
Jardiance 25 mg Tablet
12.5 mg PO DAILY
Entresto 97-103 mg Tablet
1 tab PO BID
Referrals:
[facility] [Other]
Antony Ordaz MD [Non-Admitting Privileges] -
Activity Restrictions/Additional Instructions:
Please keep your scheduled appointment with Dr. Ordaz ENT
Thank You for choosing [facility].
It was a pleasure meeting you and taking part in your care. We hope for your continued healing and wellness.
Please read discharge instructions in their entirety. However, they are for general education and may not describe your exact diagnosis at discharge. Information on your ER visit and medical conditions were discussed with you along with appropriate
follow up information...
If indicated, please take your medications as instructed and indicated on discharge paperwork.
Please schedule a follow up appointment as directed. Call to schedule an appointment
Please return to the emergency department with ANY change in, persisting, or worsening of symptoms. If any of your symptoms do not improve, or persist, or become more severe within 6-12 hours, please return to the emergency department for further
care.
Please return to the emergency department if you develop a headache, neck pain/stiffness, fever greater than 100.4F, chest pain, shortness of breath, persistent nausea, vomiting, slurred speech, difficulty walking, numbness/tingling, weakness, signs
of infection or any other symptoms that are worrisome to you.
If you have any questions or concerns please do not hesitate to call the Hospital at or E-mail me directly at [email or web address]
Interventions
Interventions:
*Risk Screen - Suicide Last Done: 09/09/24 23:02
*General Assessment Last Done: 09/09/24 23:02
*Neglect/Abuse Screening Last Done: 09/09/24 23:02
*ED- Fall Risk Assessment Last Done: 09/09/24 23:04
*ED COVID-19 Vaccine History Last Done: 09/09/24 23:04
*Nursing Disposition Last Done: 09/10/24 02:51
ED-EENT Assessment Last Done: 09/09/24 23:21
Discharge Date and Time
Discharge Date/Time: 09/10/24 02:51
Print Language: GEORGIAN
[2024-09-10 02:35] VITALS: BP 147/72
== END 2024-09-10 02:51 | disposition home or self-care (01) ==
LOC: EMR 23:00
PROVIDERS: EMERGENCY PHYSICIAN Student in an Organized Health Care Education/Training Program
DX: R04.0 Epistaxis (principal); E11.9 Type 2 diabetes mellitus without complications; I25.10 Atherosclerotic heart disease of native coronary artery without angina pectoris; I48.91 Unspecified atrial fibrillation; Z79.01 Long term (current) use of anticoagulants
CPT/HCPCS: 30901; 99283